=== PATIENT | male | born 1945 | race Caucasian/White ===

== ENCOUNTER → 2019-06-05 08:36 | Outpatient (CLI) | payer MEDICARE, BC, SELFPAY ==
--- NOTE | ~2019-06-05 | MM_ITS ---
MM diagnostic mammo BI DATE: 06/05/2019 08:56 INDICATION: Screening TECHNIQUE: Digital MLO and CC views. Computer aided detection was performed and reviewed. COMPARISON: None DENSITY: The breasts are almost entirely fatty. FINDINGS: No suspicious mass or architectural distortion, malignant calcification, skin thickening or retractio n is detected. IMPRESSIONS: BIRADS Category 1: Negative RECOMMENDATIONS: None Reviewed, dictated and finalized at Location [facility]. Reviewed, dictated and finalized at location A. AL RESEARCHER IMPRESSIONS: BIRADS Category 1: Negative RECOMMENDATIONS: None
== END ==
PROVIDERS: Visit Provider Physician Assistant
DX: N62 Hypertrophy of breast (principal); N64.4 Mastodynia
CPT/HCPCS: 77066

== ENCOUNTER → 2019-06-27 14:41 | Outpatient (CLI) | payer MEDICARE, BC, SELFPAY ==
--- NOTE | ~2019-06-27 | XR_ITS ---
EXAMINATION: XR chest 2V 06/27/2019 15:00 INDICATION: Cough PROCEDURE: 2 view chest COMPARISON: Comparison to multiple prior studies sequentially, with oldest reviewed study dated 05/24. FINDINGS: The lungs are clear. Status post median sternotomy for CABG. 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 The cardiomediastinal silhouette is within normal limits. There are no pleur al effusions. There is no pneumothorax suspected. IMPRESSION: 1: NO ACUTE CARDIOPULMONARY DISEASE. Reviewed, dictated and finalized at location A.
== END ==
PROVIDERS: PCP Family Medicine; Visit Provider Physician Assistant
DX: R05 Cough (principal)
CPT/HCPCS: 71046

== ENCOUNTER 2021-05-31 08:12 | Emergency (ER) | payer MEDICARE, BC, SELFPAY ==
[2021-05-31 08:15] VITALS: BP 171/84; PULSE 79; RESP 20; TEMP 36.7; O2SAT 98
--- NOTE | 2021-05-31 08:24 | ECG_ITS ---
Measurements Intervals [place] Rate: 66 P: 41 MA: 206 QRS: -61 QRSD: 154 T: 52 QT: 441 QTc: 464 Interpretive Statements SINUS RHYTHM BORDERLINE AV CONDUCTION DELAY RIGHT BUNDLE BRANCH BLOCK LEFT ANTERIOR FASCICULAR BLOCK BASELINE ARTIFACT- I, III, AVL, V2-V5 ABNORMAL ECG Electronically Signed On 05-31-2021 14:08:47 FOXPRO DEVELOPER by Silvestre Arreguin D.O.
--- NOTE | 2021-05-31 08:27 | ED.CHESTPAIN ---
HPI - Chest Pain General Chief Complaint: Skin/Abscess/Foreign Body Stated Complaint: cp Time Seen by Provider: 05/31/21 08:18 Source: patient History of Present Illness HPI narrative: Patient presents with chest pain. Ports symptoms been present for the past 2 days and then yesterday he noticed a rash so he came to the ER for evaluation. His pain is burning starts in his back and radiates to his chest it is sensitive to light touch. Denies any fevers, cough, congestion, nausea, vomiting, diaphoresis. Related Data Home Medications Medication Instructions Recorded Confirmed aspirin 81 mg tablet,delayed 81 mg PO DAILY 08/16/19 02/10/21 release atorvastatin 40 mg tablet 40 mg PO DAILY 08/16/19 02/10/21 cetirizine 10 mg tablet 10 mg PO DAILY PRN tablet 08/16/19 02/10/21 clopidogrel 75 mg tablet 75 mg PO DAILY 08/16/19 02/10/21 ferrous sulfate 325 mg (65 mg 325 mg PO DAILY 08/16/19 02/10/21 iron) tablet Allergies Allergy/AdvReac Type Severity Reaction Status Date / Time No Known Allergies Allergy Verified 05/31/21 08:53 Review of Systems Review of Systems: CONSTITUTIONAL: Denies fever, chills, or sweats. EYES: Denies visual changes, redness, or discharge. ENT: Denies rhinorrhea, congestion, sore throat, or otalgia. CARDIOVASCULAR: Denies, palpitations, or edema. RESPIRATORY: Denies cough or dyspnea. GASTROINTESTINAL: Denies abdominal pain, nausea, vomiting, or diarrhea. GENITOURINARY: Denies dysuria or hematuria. SKIN: Reports rash on his chest. MUSCULOSKELETAL: Denies back pain, joint pain, or myalgia. NEUROLOGIC: Denies headache, numbness, dizziness, or weakness. PSYCHIATRIC: Denies anxiety or depression. All systems reviewed & are unremarkable except as noted in HPI and below PMFSH Past Medical History Medical History CAD (coronary artery disease) History of prostate cancer HLD (hyperlipidemia) HTN (hypertension) Hypothyroidism Lumbar spondylosis Obesity Type 2 diabetes mellitus without complications Surgical History Surgical History History of coronary artery bypass graft Family History Family History Mother Family history of primary malignant neoplasm of liver Social History Social History Social History: Tobacco type: cigarettes Second hand tobacco smoke exposure: No Smoking end date: 04/05/77 Alcohol intake: never Substance use: never Substance use type: does not use Gender identity (if verbalized by the patient): Male Sexual Orientation (if Verbalized by the Patient): Straight or Heterosexual Exam Narrative: GENERAL: Well-appearing, well-nourished, and in no acute distress. HEAD: Normocephalic, atraumatic. EYES: PERRLA and EOMI. ENT: Nares clear, no rhinorrhea or epistaxis. Mucous membranes moist. NECK: Supple. No masses. No JVD CHEST: Clear to auscultation. No respiratory distress. No wheezes rales or rhonchi HEART: Regular rate and rhythm. No murmur heard. Normal peripheral pulses. ABDOMEN: Soft, nontender, nondistended, normal active bowel sounds. EXTREMITIES: Normal range of motion. No edema. SKIN: Herpetic rash in the back to the chest along a dermatomal pattern sensitive to light palpation NEURO: No focal deficits. Alert and oriented x3. PSYCH: Normal mood and affect. Course Vital Signs Vital signs: Vital Signs Temperature 36.7 C 05/31/21 08:15 Pulse Rate 79 05/31/21 08:15 Respiratory Rate 20 05/31/21 08:15 Blood Pressure 171/84 H 05/31/21 08:15 Pulse Oximetry 98 05/31/21 08:15 Temperature 36.7 C 05/31/21 08:15 Pulse Rate 59 L 05/31/21 08:50 Respiratory Rate 16 05/31/21 08:50 Blood Pressure 131/58 L 05/31/21 08:50 Pulse Oximetry 100 05/31/21 08:50 MDM - Chest Pain MDM Narrative Me
[2021-05-31 08:50] VITALS: BP 131/58; PULSE 59; RESP 16; O2SAT 100
== END 2021-05-31 08:50 | disposition home or self-care (01) ==
LOC: ANHED 08:44
PROVIDERS: Emergency Provider Emergency Medicine; PCP Family Medicine
DX: B02.29 Other postherpetic nervous system involvement (principal); I45.10 Unspecified right bundle-branch block; R94.31 Abnormal electrocardiogram [ECG] [EKG]
CPT/HCPCS: 93005; 99283

== ENCOUNTER 2022-02-04 12:57 | Outpatient (CLI) | payer MEDICARE, BC, SELFPAY ==
[2022-02-04 13:41] LABS: Hematocrit 38.2 % (42.0-52.0); Hemoglobin 12.8 g/dL (14.0-18.0)
== END 2022-02-04 12:58 | disposition home or self-care (01) ==
LOC: ANHSURGERY 13:02
PROVIDERS: Anesthesiology; PCP Family Medicine; Visit Provider Urology
DX: Z01.818 Encounter for other preprocedural examination (principal); Z78.9 Other specified health status; Z87.438 Personal history of other diseases of male genital organs
CPT/HCPCS: 36415; 85014; 85018; 87086

== ENCOUNTER 2022-02-10 00:47 | Day surgery (SDC) | payer MEDICARE, BC, SELFPAY ==
--- NOTE | 2022-02-02 11:58 | PC.NURSE ---
Report to the Outpatient Waiting Room, entrance under the green pavilion located off [facility], at time _0800 on date 02/10/22 . Planned Procedure Time: _1000 . Time changes happen often and if your time is changed the preop area will call you the afternoon before. - You and your visitor will be asked to self-screen and do not enter if you have any COVID symptoms. - We encourage only one visitor and NO visitors under age 16 are allowed at this time. Your visitor will receive communication by the phone number that is given day of service. - The patient visitor is requested to social distance or may leave the building when not with patient due to restrictions. - A mask is required within the hospital. Patients may have clear liquids (water, carbonated beverages, clear teas, apple juice) until 3 hours prior to surgery with a maximum of 20 ounces. - No food from midnight until time of surgery - Infants may have breast milk until 4 hours before surgery, formula 6 hours prior to surgery. - Children will be allowed to drink immediately following surgery. If applicable, please bring a bottle or sippy cup to assist with drinking. Juice, water, soda, and popsicles are readily available. For infants on formula, please bring formula the day of surgery. Pacifiers are allowed. Take the following medications with a SIP of water the morning of surgery: _CARVEDILOL,,LEVOTHYROXINE, Medications to discontinue per physician ____ASPIRIN PER DR MCKENNA. ALL VITAMINS AND SUPPLEMENTS 3 DAYS PRE OP Date to take last dose____02/06/22 Please no make-up, nail tuvaluan, hairspray, perfume, deodorant, or body powder the day of surgery. No jewelry (including any body piercings) or valuables the day of surgery, leave them at home. Please take a shower or bath the night before, or the morning of, surgery with an antibacterial soap. Wear comfortable, loose fitting clothing. Children are encouraged to wear pajamas. - Jewelry must be removed prior to entering the operating room. Rings and piercings that are not removed may be cut off. - The hospital will not accept responsibility for valuables. - Please leave all valuables, including medications, at home the day of surgery. If you are going home after surgery, a licensed driver's license examiner must drive you home. - NO public transportation without another adult. - We recommend that an adult stay with you for 24 hours following discharge. - We also recommend that you do not drive, make important decision, drink alcoholic beverages, or take any drugs that were not prescribed by your health care provider for at least 24 hours after your discharge time. Follow any additional instructions given to you from your surgeon. If you or anyone in your household have experienced Covid symptoms in the past week, please notify your surgeon or the nurse liaison at the phone number below for possible testing. Telephone instructions given to __PATIENT and asked if any additional questions and then verbalized understanding. Patient advised to call surgeon office or pre surgery nurse liaison [phone] if any additional questions.
[2022-02-02 12:08] VITALS: BMI 30.2
--- NOTE | 2022-02-10 08:45 | WPDHPUPDATE1 ---
History and Physical Update Update Date/Time: 02/10/22 08:45 History and Physical has been reviewed, including an updated exam of the patient. There are NO changes in the patient's condition. Risks, benefits, and alternatives have been discussed and questions answered. Patient agrees to proceed with procedure. Proceed with UroLift
[2022-02-10 08:52] VITALS: BP 199/79; PULSE 68; RESP 14; TEMP 36.7; O2SAT 98
--- NOTE | 2022-02-10 08:54 | WPDANESEPPF ---
Anes - Initial Pre Proc Eval Procedure: Operation Date: 02/10/22 10:00 Proposed Procedures p Urolift - Som Diaz MD Date/Time: 02/10/22 08:54 Surgeon: Som Diaz MD Pre Op Diagnosis: BPH Patient Data Age: 76 Gender: M Height: 1.88 m Weight: 106.6 kg Allergies Allergy/AdvReac Type Severity Reaction Status Date / Time No Known Allergies Allergy Verified 02/02/22 11:45 Home Medications Medication Instructions Recorded Confirmed Type aspirin 81 mg tablet,delayed 81 mg PO DAILY 08/16/19 02/02/22 History release (Adult Low Dose Aspirin) atorvastatin 40 mg tablet 40 mg PO DAILY 08/16/19 02/02/22 History cetirizine 10 mg tablet (Allergy 10 mg PO PRN PRN Allergy Symptoms 08/16/19 02/02/22 History Relief (cetirizine)) ferrous sulfate 325 mg (65 mg 325 mg PO DAILY 08/16/19 02/02/22 History iron) tablet lisinopril 10 mg tablet See Rx Instructions .Route 07/01/21 02/02/22 Rx .COMPLEX #90 tabs levothyroxine 75 mcg tablet See Rx Instructions .Route 08/18/21 02/02/22 Rx .COMPLEX #90 tabs carvedilol 12.5 mg tablet (Coreg) 12.5 mg PO Q12H #180 tabs 08/28/21 02/02/22 Rx trazodone 150 mg tablet 150 mg PO QHS #90 tabs 10/27/21 02/02/22 Rx docusate sodium 100 mg capsule 100 mg PO BID 02/02/22 02/02/22 History (Stool Softener) glucosamine sulfate 500 1 tablet PO QPM 02/02/22 02/02/22 History mg-chondroitin 200 mg-msm 150 mg tablet multivitamin 1 tablet PO DAILY 02/02/22 02/02/22 History tamsulosin 0.4 mg capsule 0.4 mg PO HS 02/02/22 02/02/22 History Patient hx anesthesia problems: none Family hx anesthesia problems: none Results Review: All pre-operative results and documents have been reviewed as part of the pre-operative evaluation. [facility] Past Medical History Medical History CAD (coronary artery disease) History of prostate cancer HLD (hyperlipidemia) HTN (hypertension) Hypothyroidism Lumbar spondylosis Obesity Type 2 diabetes mellitus without complications Surgical History Surgical History History of coronary artery bypass graft Family History Family History Mother Family history of primary malignant neoplasm of liver Social History Social History Social History: Smoking packs per day: 1 Smoking cigarettes per day: 20.0 Years smoked: 15 Smoking pack-years: 15.00 Smoking status: Former smoker Tobacco type: cigarettes Second hand tobacco smoke exposure: No Smoking end date: 04/05/79 Alcohol intake: never Substance use: current Substance use type: marijuana Other substance usage details: WEEKLY FOR BACK PAIN Last use: 01/26/22 Living arrangements: with family Gender identity (if verbalized by the patient): Male Sexual Orientation (if Verbalized by the Patient): Straight or Heterosexual Spiritual care concerns: No Anes - Eval Final PreProcedure Day of Procedure 02/10/22 08:54 Patient weight: obese Heart: regular rate and rhythm Lungs: clear to auscultation Airway: Mallampati scale class II Neurological: alert and oriented Last oral intake: >/= 8 hours ASA classification: III Emergent: no Anesthetic plan: proceed Anesthesia type and monitoring: general GIVS and standard monitoring Results Review: All pre-operative results and documents have been reviewed as part of the pre-operative evaluation. Informed Consent: The patient's anesthetic plan and its attendant risks and benefits were discussed with the patient/family/POA. Questions were solicited and answers provided to the satisfaction of the patient/family/POA.
[2022-02-10] MEDS: LACTATED RINGERS 1,000 ML 30 ML IV CONT (08:59)
[2022-02-10 09:01] VITALS: BP 173/67; PULSE 62
[2022-02-10] MEDS: ceFAZolin 2 GM/D5W 50 ML 2 GM/50 ML BAG IVPB (09:36)
[2022-02-10] MEDS: LIDOCAINE HCL 2% GEL UROJET 10 ML PKG MUCOUS MEM (09:51)
--- NOTE | 2022-02-10 10:04 | W.PM.PROC2 ---
Procedure Note - Detailed Date of Procedure 02/10/22 Pre-op Diagnosis BPH Post-op Diagnosis Same Procedure Performed UroLift with 4 xochitl Surgeon Som Diaz MD Anesthesia General Description of Procedure Patient is taken to the operative suite correctly identified. Once anesthesia was obtained was placed in dorsal lithotomy position and prepped and draped usual sterile fashion. UroLift cystoscope was inserted under direct vision. He has a short prostate with an elevated bladder neck. The bladder itself has no tumors. We ended up stacking 2 xochitl on each side. One was at the 3 o'clock position 1 o'clock position 9 o'clock position and 11 o'clock position. He appeared to have an anterior channel. He had 1 slight area of oozing from the 3:00 a.m. staple. We used a Bugbee to fulgurate this. There appeared to be good hemostasis at termination of procedure. 2% viscous lidocaine was inserted into the urethra. patient is taken recovery stable condition. Implants Four xochitl Drains No Packing No Pathology None sent Complications No immediate complications Condition Stable Disposition PACU
[2022-02-10 10:06] VITALS: BP 121/60; PULSE 63; RESP 14; O2SAT 94
[2022-02-10 10:30] VITALS: BP 119/60; PULSE 59; RESP 20
[2022-02-10 10:50] VITALS: BP 177/72; PULSE 58; RESP 20
== END 2022-02-10 10:51 | disposition home or self-care (01) ==
PROVIDERS: PCP Family Medicine; Visit Provider Urology
PROC: 0T7D8DZ Dilation of Urethra with Intraluminal Device, Via Natural or Artificial Opening Endoscopic (ICD-10-PCS; CPT 52441; principal; 2022-02-10 10:00)
DX: N40.1 Benign prostatic hyperplasia with lower urinary tract symptoms (principal); R35.0 Frequency of micturition; R35.1 Nocturia; I25.10 Atherosclerotic heart disease of native coronary artery without angina pectoris; I10 Essential (primary) hypertension; E78.5 Hyperlipidemia, unspecified; E03.9 Hypothyroidism, unspecified; E11.9 Type 2 diabetes mellitus without complications; M47.816 Spondylosis without myelopathy or radiculopathy, lumbar region; Z85.46 Personal history of malignant neoplasm of prostate; E66.9 Obesity, unspecified; Z68.30 Body mass index [BMI] 30.0-30.9, adult; Z79.82 Long term (current) use of aspirin; Z95.1 Presence of aortocoronary bypass graft; Z87.891 Personal history of nicotine dependence; F12.90 Cannabis use, unspecified, uncomplicated
CPT/HCPCS: C9740; A9270; J0690; J2704; J3010; J7120; L8699

== ENCOUNTER 2023-03-01 08:32 | Emergency (ER) | payer MEDICARE, BC, SELFPAY ==
[2023-03-01] VITALS (21 sets, daily range): BP systolic 152–186; BP diastolic 61–89; PULSE 53–67; RESP 16–17; TEMP 36.4; O2SAT 94–99
--- NOTE | 2023-03-01 09:23 | ECG_ITS ---
Measurements Intervals [place] Rate: 56 P: 80 AL: 194 QRS: -66 QRSD: 167 T: 9 QT: 471 QTc: 458 Interpretive Statements SINUS BRADYCARDIA ATRIAL PREMATURE COMPLEX RIGHT BUNDLE BRANCH BLOCK LEFT ANTERIOR FASCICULAR BLOCK ABNORMAL ECG COMPARED TO ECG 05/31/2021 08:18:31 SINUS BRADYCARDIA NOW PRESENT Electronically Signed On 03-01-2023 9:39:28 SHIP DESIGN TEACHER by Silvestre Arreguin D.O.
--- NOTE | 2023-03-01 09:29 | ED.GENADULT ---
HPI - General Adult General Chief complaint: Unspecified Stated complaint: high bp Time Seen by Provider: 03/01/23 08:59 Source: patient Mode of arrival: ambulatory Limitations: no limitations History of Present Illness HPI narrative: This is a 77-year-old male who presents to the ED with chief complaint of high blood pressure reading at home. Reports that he has been monitoring his blood pressure for the 1st time in over a month and today noticed that it read over 180 systolic. Reports he is otherwise asymptomatic. He has been dealing with some intermittent constipation but is not having any chest pain, shortness of breath or vision changes. Denies any further complaints. Takes lisinopril and carvedilol but states he has not changed his doses of those medications in several years. Related Data Home Medications Medication Instructions Recorded Confirmed aspirin 81 mg tablet,delayed 81 mg PO DAILY 08/16/19 09/07/22 release (Adult Low Dose Aspirin) atorvastatin 40 mg tablet 40 mg PO DAILY 08/16/19 09/07/22 cetirizine 10 mg tablet (Allergy 10 mg PO PRN PRN Allergy Symptoms 08/16/19 09/07/22 Relief (cetirizine)) ferrous sulfate 325 mg (65 mg 325 mg PO DAILY 08/16/19 09/07/22 iron) tablet docusate sodium 100 mg capsule 100 mg PO BID 02/02/22 09/07/22 (Stool Softener) glucosamine sulfate 500 1 tablet PO QPM 02/02/22 09/07/22 mg-chondroitin 200 mg-msm 150 mg tablet multivitamin 1 tablet PO DAILY 02/02/22 09/07/22 tamsulosin 0.4 mg capsule 0.4 mg PO HS 02/02/22 09/07/22 Allergies Allergy/AdvReac Type Severity Reaction Status Date / Time No Known Allergies Allergy Verified 09/07/22 10:21 Review of Systems Review of Systems: All systems as dictated in HPI [facility] Past Medical History Medical History CAD (coronary artery disease) History of prostate cancer HLD (hyperlipidemia) HTN (hypertension) Hypothyroidism Lumbar spondylosis Obesity Type 2 diabetes mellitus without complications Surgical History Surgical History History of coronary artery bypass graft Family History Family History Mother Family history of primary malignant neoplasm of liver Social History Social History Social History: Smoking packs per day: 1 Smoking cigarettes per day: 20.0 Years smoked: 15 Smoking pack-years: 15.00 Smoking status: Former smoker Tobacco type: cigarettes Second hand tobacco smoke exposure: No Smoking end date: 04/05/79 Alcohol intake: never Substance use: current Substance use type: marijuana Other substance usage details: WEEKLY FOR BACK PAIN Last use: 01/26/22 Living arrangements: with family Occupation/Education: retired Gender identity (if verbalized by the patient): Male Sexual Orientation (if Verbalized by the Patient): Straight or Heterosexual Spiritual care concerns: No Exam Narrative: GENERAL: Well-appearing, well-nourished, and in no acute distress. HEAD: Normocephalic, atraumatic. EYES: PERRLA and EOMI. ENT: Nares clear, no rhinorrhea or epistaxis. Mucous membranes moist. Oropharynx without tonsillar hypertrophy exudate or other lesions. NECK: Supple. No adenopathy or masses. CHEST: No respiratory distress. Clear to auscultation. No wheezes rales or rhonchi HEART: Regular rate and rhythm. No murmur heard. Normal peripheral pulses. ABDOMEN: Soft, nontender, nondistended, normal active bowel sounds. MSK: Normal range of motion. No edema. SKIN: Warm, dry, no rash. NEURO: Alert and oriented x3. No focal deficits. PSYCH: Normal mood and affect. Course Vital Signs Vital signs: Vital Signs Temperature 97.6 F 03/01/23 08:38 Pulse Rate 67 03/01/23 08:38 Respiratory Rate 16 03/01/23 08:38 Blood Pres
[2023-03-01 10:36] LABS: Basophils Percent Auto 0.6 % (0.2-1.2); Eosinophils Absolute Auto 0.4 K/mm3 (0-0.3); Eosinophils Percent Auto 5.3 % (0-4.4); Hematocrit 36.8 % (42.0-52.0); Hemoglobin 12.4 g/dL (14.0-18.0); Immature Granulocyte Absolute 0.02 K/mm3 (0.00-0.031); Immature Granulocyte Percent A 0.3 % (0-0.5); Immature Platelet Fraction Pct 6.3 % (0.9-11.2); Lymphocytes Absolute Auto 1.14 K/mm3 (0.9-3.2); Lymphocytes Percent Auto 15.9 % (18.3-44.2); Mean Corpuscular HGB Conc 33.7 g/dl (32-36); Mean Corpuscular Hemoglobin 32.1 pg (26-34); Mean Corpuscular Volume 95.3 fl (80-100); Mean Platelet Volume 10.9 fl (7.4-10.4); Monocytes Absolute Auto 0.6 K/mm3 (0.1-0.6); Monocytes Percent Auto 8.7 % (2.6-8.5); Neutrophils Percent Auto 69.2 % (45.5-73.1); Platelet Count Result 128 k/mm3 (150-375); Red Blood Count 3.86 M/mm3 (4.6-6.20); Red Cell Distribution Width 12.5 % (11.5-14.5); White Blood Count 7.2 K/mm3 (4.5-10.0)
[2023-03-01 10:47] LABS: Alanine Aminotransferase 20 U/L (6-50); Albumin Level 4.1 g/dL (3.5-5.1); Alkaline Phosphatase 60 U/L (38-126); Anion Gap 9 mmol/L (8-16); Aspartate Amino Transferase 32 U/L (17-59); Bilirubin,Total 0.8 mg/dL (0.2-1.3); Blood Urea Nitrogen 17 mg/dL (9-20); Calcium 8.8 mg/dL (8.4-10.2); Carbon Dioxide 24 mmol/L (22-30); Chloride 100 mmol/L (98-107); Estimated CRCL calculation 72 ml/min; Estimated Glomerular Filt Rate > 60; Glucose 107 mg/dL (65-110); Potassium 4.3 mmol/L (3.4-5.0); Sodium 133 mmol/L (137-145)
== END 2023-03-01 11:23 | disposition home or self-care (01) ==
PROVIDERS: Emergency Provider Physician Assistant; PCP Family Medicine
DX: I10 Essential (primary) hypertension (principal); I25.10 Atherosclerotic heart disease of native coronary artery without angina pectoris; E78.5 Hyperlipidemia, unspecified; E03.9 Hypothyroidism, unspecified; E11.9 Type 2 diabetes mellitus without complications; E66.9 Obesity, unspecified; Z68.27 Body mass index [BMI] 27.0-27.9, adult; Z95.1 Presence of aortocoronary bypass graft; Z85.46 Personal history of malignant neoplasm of prostate; Z87.891 Personal history of nicotine dependence; I49.1 Atrial premature depolarization; I45.2 Bifascicular block; Z79.82 Long term (current) use of aspirin
CPT/HCPCS: 36415; 80053; 85025; 85055; 93005; 99283

== ENCOUNTER 2023-03-05 09:49 | Outpatient (CLI) | payer MEDICARE, BC, SELFPAY ==
[2023-03-05 10:28] LABS: Alanine Aminotransferase 19 U/L (6-50); Albumin Level 4.3 g/dL (3.5-5.1); Alkaline Phosphatase 65 U/L (38-126); Anion Gap 9 mmol/L (8-16); Aspartate Amino Transferase 26 U/L (17-59); Bilirubin,Total 0.6 mg/dL (0.2-1.3); Blood Urea Nitrogen 14 mg/dL (9-20); Calcium 8.8 mg/dL (8.4-10.2); Carbon Dioxide 22 mmol/L (22-30); Chloride 102 mmol/L (98-107); Estimated Glomerular Filt Rate > 60; Glucose 120 mg/dL (65-110); Potassium 4.4 mmol/L (3.4-5.0); Sodium 133 mmol/L (137-145)
[2023-03-05 11:18] LABS: Basophils Absolute Auto 0.1 K/mm3 (0.0-0.1); Basophils Percent Auto 0.7 % (0.2-1.2); Eosinophils Absolute Auto 0.4 K/mm3 (0-0.3); Eosinophils Percent Auto 5.4 % (0-4.4); Hematocrit 36.5 % (42.0-52.0); Hemoglobin 12.4 g/dL (14.0-18.0); Immature Granulocyte Absolute 0.03 K/mm3 (0.00-0.031); Immature Granulocyte Percent A 0.4 % (0-0.5); Immature Platelet Fraction Pct 6.9 % (0.9-11.2); Lymphocytes Absolute Auto 1.31 K/mm3 (0.9-3.2); Lymphocytes Percent Auto 18.1 % (18.3-44.2); Mean Corpuscular Volume 94.3 fl (80-100); Mean Platelet Volume 11.2 fl (7.4-10.4); Monocytes Absolute Auto 0.8 K/mm3 (0.1-0.6); Monocytes Percent Auto 10.5 % (2.6-8.5); Neutrophils Absolute Auto 4.7 K/mm3 (1.3-6.7); Neutrophils Percent Auto 64.9 % (45.5-73.1); Platelet Count Result 142 k/mm3 (150-375); Red Blood Count 3.87 M/mm3 (4.6-6.20); Red Cell Distribution Width 12.6 % (11.5-14.5); White Blood Count 7.2 K/mm3 (4.5-10.0)
[2023-03-05 11:34] LABS: Free T4 Free Thyroxine 1.22 ng/mL (0.78-2.19)
== END 2023-03-05 09:50 | disposition home or self-care (01) ==
LOC: ANHLAB 09:51
PROVIDERS: PCP Family Medicine; Visit Provider Physician Assistant Medical
DX: R68.89 Other general symptoms and signs (principal); E03.9 Hypothyroidism, unspecified; I10 Essential (primary) hypertension
CPT/HCPCS: 36415; 80053; 84439; 84443; 85025; 85055

== ENCOUNTER 2023-03-13 10:24 | Inpatient (IN) | payer MEDICARE, BC, SELFPAY ==
[2023-03-13] VITALS (7 sets, daily range): BP systolic 133–180; BP diastolic 61–74; PULSE 52–64; RESP 18–20; TEMP 36.6–36.9; O2SAT 97–99; BMI 27.3
--- NOTE | ~2023-03-13 | XR_ITS ---
EXAMINATION: XR chest 1V INDICATION: Speech difficulty, suspected CVA TECHNIQUE: AP view of the chest is obtained. COMPARISON: 06/27/2019 FINDINGS: The lungs are free of acute opacities. No pleural effusion or pneumothorax. The heart size is normal. Median sternotomy wires and mediastinal surgical clips are seen, likely from prior coronar y artery bypass grafting. IMPRESSION: 1. No acute cardiopulmonary abnormality. Reviewed, dictated and finalized at location F. EMENTATION PROJECT MANAGER
--- NOTE | ~2023-03-13 | CT_ITS ---
EXAMINATION: CTA brain carotid DATE: 03/13/2023 11:07 INDICATION: Speech difficulty TECHNIQUE: Computed tomographic angiography (CTA) of the head was performed without and with 100 mL O mnipaque-350 intravenous contrast. CTA of the neck was performed with intravenous contrast. The dose- length product was 1857.43 mGy-cm. Maximum intensity projection and volume rendered 3D-reconstruction s were created by the technologist on a separate workstation. Automated exposure control and iterativ e reconstruction technique were employed. COMPARISON: None. FINDINGS: HEAD CTA: There is no acute intraparenchymal hemorrhage. No evidence of mass lesion. No evidence of a cute infarction. There is mild periventricular and subcortical hypodensity probably related to small vessel ischemic disease. There is mild prominence of the sulci and ventricles related to cerebral atr ophy. Intracranial calcified cerebral atherosclerosis is noted. There are no extra-axial collections. There is no mass effect or midline shift. The orbits and soft tissues are unremarkable. There is migdalia r complete opacification of the right maxillary sinus. There is a polyp or mucous retention cyst of t he left maxillary sinus. There is no significant stenosis of the basilar artery or posterior cerebral arteries. There is no si gnificant stenosis of the intracranial internal carotid arteries or the anterior or middle cerebral a rteries. The anterior communicating artery and posterior communicating arteries are normal. There is no aneurysm. NECK CTA: The thyroid gland is unremarkable. The submandibular and parotid glands are symmetric. Ther e is no lymphadenopathy. There are no masses identified. The airway is unremarkable. The superior med iastinum is unremarkable. There is moderate cervical spondylosis at C3-4. There is 53% stenosis of the proximal right internal carotid artery relative to normal distal artery lumen diameter (NASCET criteria). There is 37% stenosis of the proximal left internal carotid artery relative to normal distal artery lumen diameter. IMPRESSION: 1. No acute intracranial abnormality. Normal head CTA. 2. 53% stenosis of the proximal right internal carotid artery relative to normal distal artery lumen diameter (NASCET criteria). 3. 37% stenosis of the proximal left internal carotid artery relative to normal distal artery lumen d iameter. Reviewed, dictated and finalized at location F. BIT PREPARATOR IMPRESSION: 1. No acute intracranial abnormality. Normal head CTA. 2. 53% stenosis of the proximal right internal carotid artery relative to viri l distal artery lumen diameter (NASCET criteria). 3. 37% stenosis of the proximal left internal carotid artery relative to normal distal artery lumen diameter.
--- NOTE | ~2023-03-13 | MR_ITS ---
EXAMINATION: MR brain/brain stem wo/w con DATE: 03/14/2023 12:48 INDICATION: TIA, word finding difficulties TECHNIQUE: Magnetic resonance imaging (MRI) of the brain and brainstem was performed with 19 mL Multi Jaja intravenous contrast. Sequences included sagittal and axial T1-weighted SE, axial diffusion-laci ghted FS EPI ASSET, axial T2*-weighted GRE, axial T2-weighted FLAIR Propeller, and axial T2-weighted Propeller. Postcontrast axial and coronal T1-weighted SE was obtained. Apparent diffusion coefficient (ADC) maps were created. COMPARISON: CTA brain carotid 03/13/2023. FINDINGS: No abnormal restricted diffusion to suggest acute ischemic infarct. No MRI evidence of hemorrhage or extra-axial collection. No suspicious foci of susceptibility to suggest prior intraparenchymal hemorr edward. Scattered foci of white matter hyperintensity, likely representing mild small vessel ischemic d isease. Mild generalized parenchymal volume loss. The basilar cisterns are patent. Flow voids are pre served. Marked mucosal thickening in the bilateral maxillary sinuses. Mild mucosal thickening in the ethmoid air cells. Bilateral lens replacements, otherwise the globes and orbital contents are within normal limits. IMPRESSION: No acute intracranial abnormality. Specifically, no MR evidence of acute infarct. Reviewed, dictated and finalized at location K. ECUTTER ASSISTANT IMPRESSION: No acute intracranial abnormality. Specifically, no MR evidence of acute infarc t.
--- NOTE | 2023-03-13 10:32 | PC.NURSE ---
pt to stroke stop. Stroke team notified.
--- NOTE | 2023-03-13 10:33 | ECG_ITS ---
Measurements Intervals [place] Rate: 59 P: 40 NV: 195 QRS: -64 QRSD: 166 T: 0 QT: 464 QTc: 462 Interpretive Statements SINUS BRADYCARDIA WITH OCCASIONAL SUPRAVENTRICULAR PREMATURE COMPLEXES RIGHT BUNDLE BRANCH BLOCK LEFT ANTERIOR FASCICULAR BLOCK POSSIBLE ANTEROSEPTAL MYOCARDIAL INFARCTION , OF INDETERMINATE AGE Electronically Signed On 03-14-2023 10:22:23 SPECTROGRAPHIC ANALYST by Omer Andres M.D.
[2023-03-13 10:38] LABS: Glucose Point of Care 120 mg/dl (65-105)
[2023-03-13 10:57] LABS: Alanine Aminotransferase 19 U/L (6-50); Albumin Level 4.6 g/dL (3.5-5.1); Alkaline Phosphatase 80 U/L (38-126); Anion Gap 9 mmol/L (8-16); Aspartate Amino Transferase 29 U/L (17-59); Basophils Percent Auto 0.6 % (0.2-1.2); Bilirubin,Total 0.8 mg/dL (0.2-1.3); Blood Urea Nitrogen 17 mg/dL (9-20); Carbon Dioxide 25 mmol/L (22-30); Chloride 93 mmol/L (98-107); Eosinophils Absolute Auto 0.4 K/mm3 (0-0.3); Eosinophils Percent Auto 5.4 % (0-4.4); Estimated Glomerular Filt Rate > 60; Glucose 109 mg/dL (65-110); Hematocrit 36.3 % (42.0-52.0); Hemoglobin 12.6 g/dL (14.0-18.0); Immature Granulocyte Absolute 0.03 K/mm3 (0.00-0.031); Immature Granulocyte Percent A 0.5 % (0-0.5); Immature Platelet Fraction Pct 8.4 % (0.9-11.2); Lymphocytes Absolute Auto 1.43 K/mm3 (0.9-3.2); Lymphocytes Percent Auto 21.9 % (18.3-44.2); Mean Corpuscular HGB Conc 34.7 g/dl (32-36); Mean Corpuscular Volume 92.1 fl (80-100); Mean Platelet Volume 11.1 fl (7.4-10.4); Monocytes Absolute Auto 0.9 K/mm3 (0.1-0.6); Monocytes Percent Auto 13.6 % (2.6-8.5); Neutrophils Absolute Auto 3.8 K/mm3 (1.3-6.7); Platelet Count Result 157 k/mm3 (150-375); Potassium 4.7 mmol/L (3.4-5.0); Red Blood Count 3.94 M/mm3 (4.6-6.20); Red Cell Distribution Width 12.2 % (11.5-14.5); Sodium 127 mmol/L (137-145); White Blood Count 6.5 K/mm3 (4.5-10.0)
[2023-03-13 11:06] LABS: Estimated Glomerular Filt Rate > 60
[2023-03-13 11:08] LABS: Partial Thromboplastin Time 27.6 SECONDS (22.3-36.8); Prothrombin Time 13.8 Seconds (11.1-14.7); Troponin I < 0.012 ng/mL (0.000-0.034)
--- NOTE | 2023-03-13 11:44 | ED.NEUROSD ---
HPI - Neuro Symptoms/Deficit General Chief Complaint: Neuro Symptoms/Deficit Stated Complaint: headache, slurred speach Time Seen by Provider: 03/13/23 10:33 History of Present Illness HPI Narrative: Patient is a 77-year-old male with history of hypertension, CAD, hyperlipidemia here with difficulty speaking. His helps with history. They state that last night he went to bed feeling normal. Since he has been having elevated blood pressure readings with systolic blood pressures in the 180s recently and they have been keeping track of this at home with a log. This has been associated with some brain fog. Last night he went to bed around 11 pm, feeling normal. This morning he woke up and was doing some stuff around the house. His woke up a bit later and when she tried to speak with him she noted that he had some difficulty speaking. She initially states that he had nonsensical words that he was saying and then he started making some short sentences with an occasional inappropriate word and now he seems to have his speech back to baseline by the time he arrived to the ED. He denies any numbness or weakness in arms or legs only symptoms were occurring. She denies any facial droop. No prior history of stroke. He does appear to take an aspirin, statin, and antihypertensives. No trauma. No chest pain. Related Data Home Medications Medication Instructions Recorded Confirmed aspirin 81 mg tablet,delayed 81 mg PO HS 08/16/19 03/13/23 release (Adult Low Dose Aspirin) atorvastatin 40 mg tablet 40 mg PO HS 08/16/19 03/13/23 cetirizine 10 mg tablet (Allergy 10 mg PO PRN PRN Allergy Symptoms 08/16/19 03/13/23 Relief (cetirizine)) ferrous sulfate 325 mg (65 mg 325 mg PO HS 08/16/19 03/13/23 iron) tablet docusate sodium 100 mg capsule 100 mg PO BID 02/02/22 03/13/23 (Stool Softener) glucosamine sulfate 500 1 tablet PO HS 02/02/22 03/13/23 mg-chondroitin 200 mg-msm 150 mg tablet multivitamin 1 tablet PO HS 02/02/22 03/13/23 tamsulosin 0.4 mg capsule 0.4 mg PO HS 02/02/22 03/13/23 carvedilol 12.5 mg tablet 12.5 mg PO BID 03/13/23 03/13/23 levothyroxine 88 mcg tablet 88 mcg PO DAILY 03/13/23 03/13/23 lisinopril 10 mg tablet 10 mg PO BID 03/13/23 03/13/23 oxybutynin chloride 15 mg 15 mg PO HS 03/13/23 03/13/23 tablet,extended release 24 hr triamcinolone acetonide 0.1 % 1 applic topical DAILY 03/13/23 03/13/23 topical cream Allergies Allergy/AdvReac Type Severity Reaction Status Date / Time No Known Allergies Allergy Verified 03/05/23 08:52 Review of Systems Review of Systems: All systems reviewed & are unremarkable except as noted in HPI and below PMFSH Past Medical History Medical History (Updated 03/13/23 @ 19:38 by Molly Wade MD) BPH (benign prostatic hyperplasia) CAD (coronary artery disease) History of prostate cancer HLD (hyperlipidemia) HTN (hypertension) Hypothyroidism Insomnia Lumbar spondylosis Obesity Type 2 diabetes mellitus without complications Not currently on medications, A1C 5.6 on 09/16/22 Surgical History Surgical History (Updated 03/13/23 @ 17:39 by Jessenia Watson APRN) History of coronary artery bypass graft Family History Family History Mother Family history of primary malignant neoplasm of liver Social History Social History (Updated 03/13/23 @ 17:35 by Jessenia Watson APRN) Social History: Lives at home with . Elects his , Marly Garcia, as his surrogate decision maker. Code Status: Full Code. Smoking packs per day: 2 Smoking cigarettes per day: 40.0 Years smoked: 10 Smoking pack-years: 20.00 Smoking status: Former smoker Tobacco type: cigarettes Second hand tobacco smoke exposure: No Smoking end date: 04/05/79 Alcohol intake: never Substance use: current Substance use type: marijuana Other substance usage details: WEEKLY FOR BACK PAIN Last use
--- NOTE | 2023-03-13 12:41 | PC.NURSE ---
Patient able to ambulate to the restroom with steady gate
--- NOTE | 2023-03-13 14:21 | ADMGEN ---
This patient, Miguel Garcia, was admitted to Medical Room 345-. Patient/family oriented to hospital policies and general routines including ID bracelet, bed and alarms, visiting hours, pain management, procedures, bathroom and other care routines, personal items, smoking policy, room service/diet, and visiting hours. Information on how to activate the Rapid Response Team has been discussed. Patient/Family are encouraged to report perceived risks to care and to ask questions if they do not understand what they are told or what they should do.
--- NOTE | 2023-03-13 14:26 | PM.IMHP ---
H&P: HPI History of Present Illness Date/Time: 03/13/23 14:26 Chief Complaint: Transient Speech Changes Narrative: 77 y/o M presents here with dysarthria/aphasia with PMH of CAD, CABG (3v), HLD, HTN, DM2, and prostate cancer s/p radiation. Patient presented to the emergency department after experiencing a brief episode of garbled speech and dysarthria this morning, lasted approximately 3-4 mins. LKN - last night at 11 pm (02/10), states he went to bed feeling like his normal self. Woke up around 0530 this morning without complaint. Discovery of symptoms around 0830 (03/13), when his went to speak with him and patient was unable to stay the words that he wanted to, describing his speech as garbled. Initially all of his speech was nonsensical words in 's description and improved to occasional words being garbled before completely resolving. Of note, patient reports developing VIERA this morning prior to changes in speech. States he does not typically get headaches and this is an unusual symptom for him. VIERA is frontal (behind eyes, bilateral), 8/10, with nondescript pain. No associated N/V, photo/phonophobia. VIERA still present, no alleviating or aggravating factors noted by patient. Patient also reports that his BP has been elevated lately, followed up with PCP for this issue and lisinopril was up titrated 1 week ago. Has experienced very occasional brain fog during hypertensive episodes that would resolve without intervention. Denies any current vision changes, dizziness, lightheadedness, focal weakness, speech changes (slurred or word-finding difficulty), chest pain, SOB, or cough. Review of Systems Review of Systems: All systems reviewed & are unremarkable except as noted in HPI and below PMFSH Past Medical History Medical History (Updated 03/13/23 @ 17:49 by Jessenia Watson APRN) BPH (benign prostatic hyperplasia) CAD (coronary artery disease) History of prostate cancer HLD (hyperlipidemia) HTN (hypertension) Hypothyroidism Insomnia Lumbar spondylosis Obesity Type 2 diabetes mellitus without complications Not currently on medications, A1C 5.6 on 09/16/22 Surgical History Surgical History (Updated 03/13/23 @ 17:39 by Jessenia Watson APRN) History of coronary artery bypass graft Family History Family History Mother Family history of primary malignant neoplasm of liver Social History Social History (Updated 03/13/23 @ 17:35 by Jessenia Watson APRN) Social History: Lives at home with . Elects his , Marly Garcia, as his surrogate decision maker. Code Status: Full Code. Smoking packs per day: 2 Smoking cigarettes per day: 40.0 Years smoked: 10 Smoking pack-years: 20.00 Smoking status: Former smoker Tobacco type: cigarettes Second hand tobacco smoke exposure: No Smoking end date: 04/05/79 Alcohol intake: never Substance use: current Substance use type: marijuana Other substance usage details: WEEKLY FOR BACK PAIN Last use: 03/12/23 Lack of Transportation: No Lack of Food: Never True Current Housing: I Have Housing Concerned About Future Housing: No Difficulty Paying Gas/Electric Bills: No Difficulty Paying for Meds: No Currently Unemployed: No Education: Bachelor's Degree Difficulty w/ Childcare or Family Care: No Living arrangements: with family Occupation/Education: retired Gender identity (if verbalized by the patient): Male Sexual Orientation (if Verbalized by the Patient): Straight or Heterosexual Spiritual care concerns: No Meds Home Medications and Allergies Home Medications Medication Instructions Recorded Confirmed Type aspirin 81 mg tablet,delayed 81 mg PO HS 08/16/19 03/13/23 History release (Adult Low Dose Aspirin) atorvastatin 40 mg tablet 40 mg PO HS 08/16/19 03/13/23 History cetirizine 10 mg tablet (Allergy 10 mg PO PRN PRN Allergy Symptoms 08/16/1903/13
[2023-03-13 16:39] LABS: Magnesium 1.5 mg/dL (1.6-2.3)
[2023-03-13] MEDS: oxyBUTYnin CHLORIDE XL 5 MG TAB.ER.24 15 MG PO (20:21)
[2023-03-13] MEDS: TAMSULOSIN HCL 0.4 MG CAPSULE PO (20:22)
[2023-03-13] MEDS: FERROUS SULFATE 325 MG TABLET DR PO (20:22)
[2023-03-13] MEDS: lisinopriL 10 MG TABLET PO (20:22)
[2023-03-13] MEDS: MULTIVITAMINS THERAPEUTIC TAB (*BKC) 1 TABLET PO (20:22)
[2023-03-13] MEDS: ATORVASTATIN 40 MG TABLET PO (20:22)
[2023-03-13] MEDS: ASPIRIN 81 MG ENTERIC TABLET PO (20:22)
[2023-03-13] MEDS: traZODone HCL 50 MG TABLET 150 MG PO (20:25)
[2023-03-14] VITALS (11 sets, daily range): BP systolic 121–151; BP diastolic 60–68; PULSE 51–68; RESP 16–18; TEMP 36.4–36.6; O2SAT 97–99
[2023-03-14] MEDS: LEVOTHYROXINE SODIUM 88 MCG TABLET PO (04:34)
[2023-03-14 06:31] LABS: Hematocrit 33.9 % (42.0-52.0); Hemoglobin 11.9 g/dL (14.0-18.0); Immature Platelet Fraction Pct 6.6 % (0.9-11.2); Mean Corpuscular HGB Conc 35.1 g/dl (32-36); Mean Corpuscular Hemoglobin 32.2 pg (26-34); Mean Corpuscular Volume 91.9 fl (80-100); Mean Platelet Volume 10.7 fl (7.4-10.4); Platelet Count Result 136 k/mm3 (150-375); Red Blood Count 3.69 M/mm3 (4.6-6.20); Red Cell Distribution Width 12.4 % (11.5-14.5); White Blood Count 6.3 K/mm3 (4.5-10.0)
[2023-03-14 06:40] LABS: Alanine Aminotransferase 18 U/L (6-50); Albumin Level 4.1 g/dL (3.5-5.1); Alkaline Phosphatase 73 U/L (38-126); Anion Gap 7 mmol/L (8-16); Aspartate Amino Transferase 27 U/L (17-59); Bilirubin,Total 0.8 mg/dL (0.2-1.3); Blood Urea Nitrogen 14 mg/dL (9-20); Calcium 8.6 mg/dL (8.4-10.2); Carbon Dioxide 24 mmol/L (22-30); Chloride 99 mmol/L (98-107); Cholesterol 111 mg/dL (0-200); Estimated CRCL calculation 72 ml/min; Estimated Glomerular Filt Rate > 60; Glucose 102 mg/dL (65-110); HDL Direct 44 mg/dL; Magnesium 1.8 mg/dL (1.6-2.3); Potassium 4.5 mmol/L (3.4-5.0); Sodium 130 mmol/L (137-145); Triglycerides 83 mg/dL (<150)
[2023-03-14 06:51] LABS: LDL Cholesterol Direct 55 mg/dL
[2023-03-14] MEDS: DOCUSATE SODIUM 100 MG CAPSULE PO ×2 (08:10→16:33)
[2023-03-14] MEDS: lisinopriL 10 MG TABLET PO ×2 (08:10→21:34)
[2023-03-14] MEDS: carvediloL 12.5 MG TABLET PO ×2 (08:10→21:34)
[2023-03-14] MEDS: ENOXAPARIN 40 MG/0.4 ML SYRINGE SUB-Q (08:11)
[2023-03-14 08:51] LABS: Hemoglobin A1C 5.6 % (<5.7)
--- NOTE | 2023-03-14 10:57 | WPDNEURCNPN ---
Assessment and Plan Assessment and plan (1) Brain TIA: Code(s): G45.9 - Transient cerebral ischemic attack, unspecified Status: Acute (2) Episode of change in speech: Code(s): R47.89 - Other speech disturbances Status: Acute (3) Type 2 diabetes mellitus without complications: Code(s): E11.9 - Type 2 diabetes mellitus without complications Status: Acute (4) HTN (hypertension): Qualifiers: Hypertension type: primary hypertension Qualified Code(s): I10 - Essential (primary) hypertension Code(s): I10 - Essential (primary) hypertension Status: Acute (5) HLD (hyperlipidemia): Code(s): E78.5 - Hyperlipidemia, unspecified Status: Acute Plan Mr. Garcia is a 77 year old male with a history of HTN, HLD, DM, CAD presenting for evaluation of transient episode of aphasia. Suspect likely TIA. ABCD2 score is 3, but he is already on ASA 81mg daily. CTA brain/carotid showed extracranial stenosis on both sides, with 37% in LICA and 53% GERARDO. - MRI brain pending - Will likely do Aspirin and Plavix x 3 weeks, followed by daily Aspirin 81mg (assuming there is no acute stroke on MRI) - Continue Lipitor 40mg daily, LDL is at goal - Surface echocardiogram with bubble study Consult date: 03/14/23 Reason for consult: TIA HPI: Miguel Garcia is a 77 year old male with a history of HTN, DM, HLD, CAD who presented on 03/13 due to speech changes. Patient's last known well was the night before admission when he went to bed around 11PM. The following AM, noted that patient was have difficulty with his speech -- intially it was nonsensical, but eventually improved to the point he could make sentences but still with paraphasic errors. Symptoms only lasted about 10 minutes. He was taken to [facility], where his speech was noted to be back to baseline. He did not have any other focal deficits during this entire episode. His initial blood pressure was in the 180s systolic. CT head was negative for acute changes. CTA brain/carotid showed 53% stenosis in the proximal R ICA and 37% stenosis in the proximal L ICA. MRI of brain has not yet been completed. EKG showed sinus bradycardia with occasional supraventricular premature complexes. His LDL is 55 and A2c is 5.4. He is already on ASA 81mg daily and Lipitor 40mg daily. Review of Systems Review of Systems: All systems reviewed & are unremarkable except as noted in HPI and below PMFSH Past Medical History Medical History (Updated 03/13/23 @ 19:38 by Molly Wade MD) BPH (benign prostatic hyperplasia) CAD (coronary artery disease) History of prostate cancer HLD (hyperlipidemia) HTN (hypertension) Hypothyroidism Insomnia Lumbar spondylosis Obesity Type 2 diabetes mellitus without complications Not currently on medications, A1C 5.6 on 09/16/22 Surgical History Surgical History (Updated 03/13/23 @ 17:39 by Jesseina Watson APRN) History of coronary artery bypass graft Family History Family History Mother Family history of primary malignant neoplasm of liver Social History Social History (Updated 03/13/23 @ 17:35 by Jessenia Watson APRN) Social History: Lives at home with . Elects his , Marly Garcia, as his surrogate decision maker. Code Status: Full Code. Smoking packs per day: 2 Smoking cigarettes per day: 40.0 Years smoked: 10 Smoking pack-years: 20.00 Smoking status: Former smoker Tobacco type: cigarettes Second hand tobacco smoke exposure: No Smoking end date: 04/05/79 Alcohol intake: never Substance use: current Substance use type: marijuana Other substance usage details: WEEKLY FOR BACK PAIN Last use: 03/12/23 Lack of Transportation: No Lack of Food: Never True Current Housing: I Have Housing Concerned About Future Housing: No Difficulty Paying Gas/Electric Bills: No Difficulty Paying for Meds: No Currentl
[2023-03-14] MEDS: oxyCODONE/ACETAMINOPHEN (*CRX) 5-325 MG TABLET 1 TABLET PO (11:33)
[2023-03-14] MEDS: diazePAM (*CRX) 5 MG TABLET PO (11:34)
--- NOTE | 2023-03-14 12:12 | PM.IMPN ---
Progress Note: A&P Assessment and Plan (1) Brain TIA: Code(s): G45.9 - Transient cerebral ischemic attack, unspecified Status: Acute Assessment and Plan: Likely TIA CT brain and neck completed CTA brain/carotid showed extracranial stenosis on both sides, with 37% in LICA and 53% GERARDO. PT will need vascular folow up on DC Pt awaiting MRI brain And echo study Pt seen by neurology medications have been adjusted (2) Episode of change in speech: Code(s): R47.89 - Other speech disturbances Status: Acute Assessment and Plan: Transient deficits, garbled speech, that were discovered on 03/13 at 08:30 am, resolves within 3-4 mins. LNK 11 pm on 03/12. Imaging shows no acute intracranial abnormality. -admission for observation and telemetry -Not candidate for thrombolytics or thrombectomy due resolution of symptoms and no abnormality seen on imaging. -CXR: No acute cardiopulmonary abnormality. -CTA 1. No acute intracranial abnormality. Normal head CTA. 2. 53% stenosis of the proximal right internal carotid artery relative to normal distal artery lumen diameter (NASCET criteria). 3. 37% stenosis of the proximal left internal carotid artery relative to normal distal artery lumen diameter. -Neurology consulted (3) Type 2 diabetes mellitus without complications: Code(s): E11.9 - Type 2 diabetes mellitus without complications Status: Acute Assessment and Plan: Accuchecks SSI Sugars are stable (4) HTN (hypertension): Qualifiers: Hypertension type: primary hypertension Qualified Code(s): I10 - Essential (primary) hypertension Code(s): I10 - Essential (primary) hypertension Status: Acute Assessment and Plan: BP is 151/68 continue BP medications (5) HLD (hyperlipidemia): Code(s): E78.5 - Hyperlipidemia, unspecified Status: Acute Assessment and Plan: Continue statin (6) Hypothyroidism: Qualifiers: Hypothyroidism type: unspecified Qualified Code(s): E03.9 - Hypothyroidism, unspecified Code(s): E03.9 - Hypothyroidism, unspecified Status: Acute Assessment and Plan: Continue home levothyroxine. (7) History of back surgery: Code(s): Z98.890 - Other specified postprocedural states Status: Acute Assessment and Plan: Percocetx1 and Valiumx1 given before MRI pt has chronic back pain cannot lie flat Subjective Date/time seen: 03/14/23 12:12 Interval history: 77 y/o M presents here with dysarthria/aphasia with PMH of CAD, CABG (3v), HLD, HTN, DM2, and prostate cancer s/p radiation. Pt admitted with garbled speech suspected TIA pt going for MRI brain today Pt had CT brain and neck Pt seen by neurology medical management started awaiting ECHO given pts medical history Pt otherwise has no complaints walking talking normally Review of Systems Review of Systems: No specific complaints Exam Const: General: cooperative, healthy appearing and overweight; No in distress Nutritional Appearance: overweight Orientation/consciousness: oriented to person HENMT: Head: normal to inspection Resp: Effort & Inspection: no respiratory distress Auscultation: no rhonchi and no wheezes Cardio: Rate: regular rate Rhythm: regular rhythm GI: Inspection: normal to inspection GI Palp: No abdominal tenderness, No Guarding due to palpation present (GI) and No Hepatomegaly present Auscultation: normal bowel sounds Neuro: General: oriented to person Objective Data Vital Signs Vital Signs: Vital Signs - 24 hr 03/13/23 13:49 03/13/23 14:32 03/13/23 16:00 Temperature 36.9 C Pulse Rate 60 52 L 62 Respiratory Rate 20 18 Blood Pressure 134/71 151/65 H Pulse Oximetry 98 97 Oxygen Delivery 03/13/23 16:56 03/13/23 20:00 03/13/23 20:00 Temperature Pulse Rate 61 61 Respiratory Rate 18 Blood Pressure Pulse Oximetry 97 Oxy
[2023-03-14] MEDS: oxyBUTYnin CHLORIDE XL 5 MG TAB.ER.24 15 MG PO (21:34)
[2023-03-14] MEDS: ATORVASTATIN 40 MG TABLET PO (21:34)
[2023-03-14] MEDS: MULTIVITAMINS THERAPEUTIC TAB (*BKC) 1 TABLET PO (21:34)
[2023-03-14] MEDS: traZODone HCL 50 MG TABLET 150 MG PO (21:34)
[2023-03-14] MEDS: ASPIRIN 81 MG ENTERIC TABLET PO (21:35)
[2023-03-14] MEDS: FERROUS SULFATE 325 MG TABLET DR PO (21:35)
[2023-03-14] MEDS: TAMSULOSIN HCL 0.4 MG CAPSULE PO (21:35)
[2023-03-15] VITALS (9 sets, daily range): BP systolic 133–155; BP diastolic 59–82; PULSE 49–66; RESP 18; TEMP 36.7–36.8; O2SAT 97–99
--- NOTE | 2023-03-15 | ECHO_ITS ---
Patient Info Name: Miguel Garcia Age: 77 years : 1945 Gender: Male Ht: 74 in Wt: 212 lbs BSA: 2.25 m2 HR: 63 bpm BP: 148 / 82 mmHg Heart Rhythm: Sinus Rhythm Technical Quality: Fair Exam Date: 03/15/2023 11:06 AM Exam Location: Echo Lab Exam Room: [facility] Patient Status: Inpatient Admit Date: 03/14/2023 Staff Ordering Physician: Jessenia Watson APRN Electronics System Mechanic: Eulalia Gonzalez RDCS Attending Provider: Ruddy Bates MD Referring Physician: Shirley MONSALVE; Exam Type: CA echo doppler w bubble study Study Info Indications - TIA R/O CSE HX/O CAD /CABG Complete two-dimensional, color flow and Doppler transthoracic echocardiogram is performed with agitated saline. Contrast/Agitated Saline Contrast/Ag. Saline: Agitated Saline Amount: 20.00 ml Existing IV Access: Yes IV Access Condition: patent with no signs of infiltration Summary 1. Left ventricular hypertrophy with adequate systolic function and grade 1 diastolic noncompliance+. 2. Left atrial enlargement. 3. Modest amounts of mitral trivial aortic and tricuspid regurgitation. 4. Agitated saline contrast injection demonstrates no evidence of intracardiac shunt. Left Ventricle Left ventricular chamber dimension is normal. Left ventricular systolic function is normal, estimated at 50-55%. There is mild concentric increased left ventricular wall thickness. The left ventricular diastolic function is grade I diastolic dysfunction. Right Ventricle Right ventricular chamber dimension is normal. Left Atria Left atrial chamber dimension is mildly enlarged. Right Atria Right atrial chamber dimension is normal. Atrial Septum Intact interatrial septum visualized by agitated saline imaging. Aortic Valve The aortic valve is trileaflet. There is mild aortic valve sclerosis. There is trace aortic valve regurgitation. Pulmonic Valve The pulmonic valve is normal. Mitral Valve The mitral valve has normal leaflets. There is trace mitral valve regurgitation. Tricuspid Valve The tricuspid valve leaflets are normal. Pericardium/Pleural The pericardium appears normal. Aorta The aortic root size at the sinus of Valsalva is normal. Left Ventricular Outflow Tract Name Value Normal LVOT 2D LVOT Diameter 2.1 cm LVOT Doppler LVOT Peak Gradient 5 mmHg LVOT Mean Gradient 3 mmHg LVOT VTI 23 cm LVOT VTI/AV VTI Ratio 0.7 LVOT Stroke Volume 79 ml LVOT CO 17.4 l/min LVOT CI 7.7 l/min/m2 Pulmonic Valve Name Value Normal PV Doppler PV Peak Gradient 7 mmHg Mitral Valve Name Value Normal
[2023-03-15] MEDS: LEVOTHYROXINE SODIUM 88 MCG TABLET PO (06:02)
[2023-03-15] MEDS: lisinopriL 10 MG TABLET PO (08:47)
[2023-03-15] MEDS: carvediloL 12.5 MG TABLET PO (08:47)
[2023-03-15] MEDS: DOCUSATE SODIUM 100 MG CAPSULE PO ×2 (08:48→17:03)
[2023-03-15] MEDS: ENOXAPARIN 40 MG/0.4 ML SYRINGE SUB-Q (08:48)
[2023-03-15] MEDS: polyethylene glycoL 3350 17 GM POWD.PACK PO (12:22)
--- NOTE | 2023-03-15 18:05 | PM.DS ---
DS: Admitting Diagnosis Discharge Date 03/15/2023: Admitting Diagnosis Transient ischemic attack DS: Discharge Diagnosis Discharge Diagnosis (1) Brain TIA: Code(s): G45.9 - Transient cerebral ischemic attack, unspecified Status: Acute (2) Episode of change in speech: Code(s): R47.89 - Other speech disturbances Status: Acute (3) Type 2 diabetes mellitus without complications: Code(s): E11.9 - Type 2 diabetes mellitus without complications Status: Acute (4) HTN (hypertension): Qualifiers: Hypertension type: primary hypertension Qualified Code(s): I10 - Essential (primary) hypertension Code(s): I10 - Essential (primary) hypertension Status: Acute (5) HLD (hyperlipidemia): Code(s): E78.5 - Hyperlipidemia, unspecified Status: Acute (6) Hypothyroidism: Qualifiers: Hypothyroidism type: unspecified Qualified Code(s): E03.9 - Hypothyroidism, unspecified Code(s): E03.9 - Hypothyroidism, unspecified Status: Acute (7) History of back surgery: Code(s): Z98.890 - Other specified postprocedural states Status: Acute (8) Chronic low back pain: Code(s): M54.5 - Low back pain; G89.29 - Other chronic pain Status: Acute (9) Lumbar spondylosis: Code(s): M47.816 - Spondylosis without myelopathy or radiculopathy, lumbar region Status: Acute (10) Osteoarthritis of right knee: Code(s): M17.11 - Unilateral primary osteoarthritis, right knee Status: Acute (11) Obesity: Code(s): E66.9 - Obesity, unspecified Status: Acute (12) Eczema: Code(s): L30.9 - Dermatitis, unspecified Status: Acute DS: Summary Hospital Course Reason for hospitalization: Patient admitted with transient speech changes which lasted for 3-4 minutes. Admitted for TIA workup Hospital Course: H&P: HPI History of Present Illness Date/Time: 03/13/23? 14:26 Chief Complaint: Transient Speech Changes Narrative: 77 y/o M presents here with dysarthria/aphasia with PMH of CAD, CABG (3v), HLD, HTN, DM2, and prostate cancer s/p radiation. Patient presented to the emergency department after experiencing a brief episode of garbled speech and dysarthria this morning, lasted approximately 3-4 mins. LKN - last night at 11 pm (02/10), states he went to bed feeling like his normal self. Woke up around 0530 this morning without complaint. Discovery of symptoms around 0830 (03/13), when his went to speak with him and patient was unable to stay the words that he wanted to, describing his speech as garbled. Initially all of his speech was nonsensical words in 's description and improved to occasional words being garbled before completely resolving. Of note, patient reports developing VIERA this morning prior to changes in speech. States he does not typically get headaches and this is an unusual symptom for him. VIERA is frontal (behind eyes, bilateral), 8/10, with nondescript pain. No associated N/V, photo/phonophobia. VIERA still present, no alleviating or aggravating factors noted by patient. Patient also reports that his BP has been elevated lately, followed up with PCP for this issue and lisinopril was up titrated 1 week ago. Has experienced very occasional brain fog during hypertensive episodes that would resolve without intervention. Denies any current vision changes, dizziness, lightheadedness, focal weakness, speech changes (slurred or word-finding difficulty), chest pain, SOB, or cough. HOSPITAL COURSE ... 03/13/2023 - 03/15/2023: Patient was seen and evaluated by Neurology. TIA Workup was done with brain MRI, head and neck CTA and 2D echo with bubble study which were within normal limits. Patient cleared for discharge by Neurology with instructions for aspirin and Plavix for 3 weeks followed by daily aspirin 81 mg. He is advised to follow up closely with PCP and Neurology as an outpatient. Status at Discharg
== END 2023-03-15 18:43 | disposition home or self-care (01) | DRG 69 ==
LOC: ANHED 14:25 → ANH3MED 14:31
PROVIDERS: Student in an Organized Health Care Education/Training Program; Admitting Provider Internal Medicine; Emergency Provider Student in an Organized Health Care Education/Training Program; PCP Family Medicine; Visit Provider Family Medicine
DX: G45.9 Transient cerebral ischemic attack, unspecified (principal); I65.23 Occlusion and stenosis of bilateral carotid arteries; I10 Essential (primary) hypertension; I25.10 Atherosclerotic heart disease of native coronary artery without angina pectoris; R47.89 Other speech disturbances; R29.700 NIHSS score 0; E11.9 Type 2 diabetes mellitus without complications; E78.5 Hyperlipidemia, unspecified; E03.9 Hypothyroidism, unspecified; L30.9 Dermatitis, unspecified; N40.0 Benign prostatic hyperplasia without lower urinary tract symptoms; M17.11 Unilateral primary osteoarthritis, right knee; M47.816 Spondylosis without myelopathy or radiculopathy, lumbar region; Z95.1 Presence of aortocoronary bypass graft; Z79.82 Long term (current) use of aspirin; Z85.46 Personal history of malignant neoplasm of prostate; Z92.3 Personal history of irradiation; Z87.891 Personal history of nicotine dependence
CPT/HCPCS: 36415; 70496; 70498; 70553; 71045; 80053; 80061; 82607; 82746; 82948; 83036; 83735; 84425; 84484; 85025; 85027; 85055; 85610; 85730; 93005; 93306; 96365; 96366; 96375; 99285; A9270; A9577; G0378; J1650; J3411; J3475; J7030; Q9967

== ENCOUNTER 2023-12-20 06:10 | Emergency (ER) | payer MEDICARE, BC, SELFPAY ==
[2023-12-20] VITALS (14 sets, daily range): BP systolic 129–155; BP diastolic 57–84; PULSE 54–73; RESP 16–22; TEMP 36.3; O2SAT 94–98
--- NOTE | ~2023-12-20 | CT_ITS ---
CTA brain carotid Ordering provider: Kory Pena MD History: . CVA . Comparison: March 13, 2023 Technique: CT angiogram head and neck was performed following timed intravenous injection of contrast . Thin slice axial images and reformatted coronal images were obtained. Three dimensional reformatted images of the brain were also obtained using a [employer] workstation. Radiation reduction technique ut ilized. DLP is 1905.38 mGy-cm. FINDINGS: HEAD: --ANTERIOR AND MIDDLE CEREBRAL ARTERIES AND BRANCHES: Normal caliber and contour. --INTERNAL CAROTID ARTERIES: Mild atheromatous disease but no significant stenosis. No occlusion. --BASILAR ARTERY AND BRANCHES: Normal caliber and contour. No atheromatous disease. --POSTERIOR CEREBRAL ARTERIES: Normal caliber and contour --POSTERIOR COMMUNICATING ARTERIES: Not visualized which is probably related to congenital absence or small size. --ANEURYSM: None visualized. --BRAIN: Mild brain atrophy with deep white matter ischemic changes. Mild ventricular dilatation. No acute intracranial process. --BONES AND SUPERFICIAL SOFT TISSUES: no definite abnormality. --PARANASAL SINUSES AND MASTOIDS: Bilateral maxillary sinus disease. NECK: --RIGHT CERVICAL CAROTID SYSTEM: Mild atheromatous disease of the carotid bulb and proximal internal carotid artery without significant stenosis. Percent stenosis per NASCET criteria is 60%. No carotid dissection. Otherwise, no significant atheromatous disease or stenosis of the cervical carotid syste m. --LEFT CERVICAL CAROTID SYSTEM: Mild atheromatous disease of the carotid bulb and proximal internal c arotid artery without significant stenosis. Percent stenosis per NASCET criteria is 50%. No carotid dissection. Otherwise, no significant atheromatous disease or stenosis of the cervical carotid system. --VERTEBRAL ARTERIES: Normal caliber and contour. --VISUALIZED AORTIC ARCH AND BRANCHING VESSELS: Mild atheromatous disease but no significant stenosis . Atherosclerotic changes seen at the origin of the common carotid arteries. --SOFT TISSUES: Normal. --CERVICAL SPINE: Age appropriate degenerative changes. IMPRESSION: l CTA head and neck. Percent stenosis per NASCET criteria is 60% on the right side and 50% percent o n the left. No significant stenosis or occlusion seen in the intracranial arteries. Reviewed, dictated and finalized at location A. IMPRESSION: l CTA head and neck. Percent stenosis per NASCET criteria is 60% on the right side and 50% percent on the left. No significant stenosis or occlusion seen in the intracranial arteries.
--- NOTE | 2023-12-20 07:07 | PC.NURSE ---
bssr given to leena solorzano at this time.
--- NOTE | 2023-12-20 07:20 | ED.GENADULT ---
HPI - General Adult General Chief complaint: Neuro Symptoms/Deficit Stated complaint: periods of confusion, left eye shade coming down Time Seen by Provider: 12/20/23 06:57 History of Present Illness HPI narrative: 78 year old male present to ED for evaluation for change and vision of his left eye. Patient states he is walking on Wednesday did not see a step and did stumble. Patient did not strike his head but did strain his right groin. Patient notices a few hours after the incident he is having some left eye pain and did notice some growing in his vision over his left eye. Patient describes a great current that obstructs the left visual field for Related Data Home Medications Medication Instructions Recorded Confirmed aspirin 81 mg tablet,delayed 81 mg PO HS 08/16/19 10/04/23 release (Adult Low Dose Aspirin) atorvastatin 40 mg tablet 40 mg PO HS 08/16/19 10/04/23 cetirizine 10 mg tablet (Allergy 10 mg PO PRN PRN Allergy Symptoms 08/16/19 10/04/23 Relief (cetirizine)) ferrous sulfate 325 mg (65 mg 325 mg PO HS 08/16/19 10/04/23 iron) tablet docusate sodium 100 mg capsule 100 mg PO BID 02/02/22 10/04/23 (Stool Softener) glucosamine sulfate 500 1 tablet PO HS 02/02/22 10/04/23 mg-chondroitin 200 mg-msm 150 mg tablet multivitamin 1 tablet PO HS 02/02/22 10/04/23 tamsulosin 0.4 mg capsule 0.4 mg PO HS 02/02/22 10/04/23 oxybutynin chloride 15 mg 15 mg PO HS 03/13/23 10/04/23 tablet,extended release 24 hr triamcinolone acetonide 0.1 % 1 applic topical DAILY 03/13/23 10/04/23 topical cream Allergies Allergy/AdvReac Type Severity Reaction Status Date / Time No Known Allergies Allergy Verified 12/20/23 06:38 Review of Systems Review of Systems: All systems reviewed & are unremarkable except as noted in HPI and below PMFSH Past Medical History Medical History BPH (benign prostatic hyperplasia) CAD (coronary artery disease) History of prostate cancer HLD (hyperlipidemia) HTN (hypertension) Hypothyroidism Insomnia Lumbar spondylosis Obesity Type 2 diabetes mellitus without complications Not currently on medications, A1C 5.6 on 09/16/22 Surgical History Surgical History History of coronary artery bypass graft Family History Family History Mother Family history of primary malignant neoplasm of liver Social History Social History Social History: Lives at home with . Elects his , Marly Garcia, as his surrogate decision maker. Code Status: Full Code. Smoking packs per day: 2 Smoking cigarettes per day: 40.0 Years smoked: 10 Smoking pack-years: 20.00 Smoking status: Former smoker Tobacco type: cigarettes Second hand tobacco smoke exposure: No Smoking end date: 04/05/79 Alcohol intake: never Substance use: current Substance use type: marijuana Other substance usage details: WEEKLY FOR BACK PAIN Last use: 03/12/23 Do You Feel Safe in your Home?: Yes Lack of Transportation: No Lack of Food: Never True Current Housing: I Have Housing Concerned About Future Housing: No Difficulty Paying Gas/Electric Bills: No Difficulty Paying for Meds: No Currently Unemployed: No Education: Bachelor's Degree Difficulty w/ Childcare or Family Care: No Living arrangements: with family Occupation/Education: retired Gender identity (if verbalized by the patient): Male Sexual Orientation (if Verbalized by the Patient): Straight or Heterosexual Spiritual care concerns: No Exam Narrative: APPEARANCE: Well appearing, no pain, no distress, well-nourished. HEAD: normocephalic, atraumatic. EYES: PERRLA/EOMI, conjunctivae clear. Visual oneil intact with blurred vision the upper visual oneil. Fundus exam was difficult on that side. Bedsid
[2023-12-20 07:34] LABS: Hematocrit 34.2 % (42.0-52.0); Hemoglobin 11.8 g/dL (14.0-18.0); Immature Platelet Fraction Pct 5.8 % (0.9-11.2); Mean Corpuscular HGB Conc 34.5 g/dl (32-36); Mean Corpuscular Hemoglobin 33.1 pg (26-34); Mean Corpuscular Volume 95.8 fl (80-100); Platelet Count Result 126 k/mm3 (150-375); Red Blood Count 3.57 M/mm3 (4.6-6.20); Red Cell Distribution Width 12.1 % (11.5-14.5); White Blood Count 6.7 K/mm3 (4.5-10.0)
[2023-12-20 07:35] LABS: Basophils Percent Auto 0.6 % (0.2-1.2); Eosinophils Absolute Auto 0.4 K/mm3 (0-0.3); Eosinophils Percent Auto 6.2 % (0-4.4); Immature Granulocyte Absolute 0.03 K/mm3 (0.00-0.031); Immature Granulocyte Percent A 0.4 % (0-0.5); Lymphocytes Absolute Auto 1.13 K/mm3 (0.9-3.2); Lymphocytes Percent Auto 16.8 % (18.3-44.2); Mean Platelet Volume 10.7 fl (7.4-10.4); Monocytes Absolute Auto 0.9 K/mm3 (0.1-0.6); Monocytes Percent Auto 13.5 % (2.6-8.5); Neutrophils Absolute Auto 4.2 K/mm3 (1.3-6.7); Neutrophils Percent Auto 62.5 % (45.5-73.1)
[2023-12-20 07:44] LABS: Alanine Aminotransferase 16 U/L (6-50); Albumin Level 3.8 g/dL (3.5-5.1); Alkaline Phosphatase 100 U/L (38-126); Anion Gap 10 mmol/L (4-12); Aspartate Amino Transferase 26 U/L (17-59); Bilirubin,Total 0.3 mg/dL (0.2-1.3); Blood Urea Nitrogen 15 mg/dL (9-20); Calcium 8.2 mg/dL (8.4-10.2); Carbon Dioxide 24 mmol/L (22-30); Chloride 101 mmol/L (98-107); Estimated CRCL calculation 71 ml/min; Estimated Glomerular Filt Rate > 60; Glucose 108 mg/dL (65-110); Potassium 4.2 mmol/L (3.4-5.0); Sodium 135 mmol/L (137-145)
[2023-12-20 07:45] LABS: Prothrombin Time 13.7 Seconds (11.1-14.7)
[2023-12-20 07:46] LABS: Partial Thromboplastin Time 28.1 Seconds (22.3-36.8)
[2023-12-20 08:33] LABS: Appearance Urine Clear (Clear); Color Urine Yellow (Yellow)
[2023-12-20 08:34] LABS: Add Urine Microscopic? NO; Bilirubin Urine Negative (Negative); Blood Urine Negative (Negative); Glucose Urine UA Negative (Negative); Ketones Urine Negative (Negative); Leukocyte Esterase Ur Negative LEU/UL (Negative); Nitrate Urine Negative (Negative); Protein Urine Negative (Negative); Specific Grav Ur 1.013 (1.001-1.035)
== END 2023-12-20 09:10 | disposition short-term general hospital (02) ==
PROVIDERS: Emergency Provider Emergency Medicine; PCP Family Medicine
DX: H33.22 Serous retinal detachment, left eye (principal); I25.10 Atherosclerotic heart disease of native coronary artery without angina pectoris; I10 Essential (primary) hypertension; E78.5 Hyperlipidemia, unspecified; E11.9 Type 2 diabetes mellitus without complications; E03.9 Hypothyroidism, unspecified; E66.9 Obesity, unspecified; Z68.28 Body mass index [BMI] 28.0-28.9, adult; N40.0 Benign prostatic hyperplasia without lower urinary tract symptoms; Z95.1 Presence of aortocoronary bypass graft; Z87.891 Personal history of nicotine dependence; Z79.82 Long term (current) use of aspirin; Z79.02 Long term (current) use of antithrombotics/antiplatelets; Z79.899 Other long term (current) drug therapy; I65.23 Occlusion and stenosis of bilateral carotid arteries
CPT/HCPCS: 36415; 70496; 70498; 80053; 81003; 85025; 85055; 85610; 85730; 99285; Q9967

== ENCOUNTER 2024-04-03 13:02 | Outpatient (CLI) | payer MEDICARE, BC, SELFPAY ==
--- NOTE | ~2024-04-03 | US_ITS ---
EXAMINATION: US carotid duplex BI DATE: 04/03/2024 13:34 INDICATION: Carotid artery disease with coronary stenosis TECHNIQUE: Grayscale, color Doppler, and pulsed Doppler images of the cervical carotid arteries were obtained. The degree of vessel stenosis is placed in one of the following categories: normal, <50%, 5 0-69%, >=70% but less than near-occlusion, near-occlusion, or total occlusion. Note that percent sten osis relative to normal distal artery lumen diameter is indirectly measured from velocity measurement s as described by Cody, et al. Radiology 2003; 229:340-346. COMPARISON: CT dated 12/20/2023 FINDINGS: RIGHT: The right common carotid artery (CCA) peak systolic velocity (PSV) is 92 cm/s. The right internal car otid artery (ICA) PSV is 84 cm/s. The right ICA end-diastolic velocity (EDV) is 19 cm/s. The right IC A/CCA PSV ratio is 0.9. Grayscale and color Doppler images yield an estimate of <50% diameter reducti on from plaque in the ICA. The external carotid artery (ECA) PSV is 104 cm/s. There is antegrade flow in the right vertebral artery. There is a presteal waveform at the right vertebral artery with notch between 2 systolic peaks. LEFT: The left CCA PSV is 97 cm/s. The left ICA PSV is 148 cm/s. The left ICA EDV is 32 cm/s. The left ICA/ CCA PSV ratio is 1.5. Grayscale and color Doppler images yield an estimate of 50-69% diameter reducti on from plaque in the ICA. The ECA PSV is 125 cm/s. There is antegrade flow in the left vertebral art franck. IMPRESSION: 1. <50% stenosis in the right internal carotid artery. 2. 50-69% stenosis in the left internal carotid artery. 3. Pre subclavian steal waveform in the right vertebral artery suggesting a hemodynamically significa nt stenosis in the more proximal right subclavian artery. Reviewed, dictated and finalized at location B. ON INSTALLER IMPRESSION: 1. <50% stenosis in the right internal carotid artery. 2. 50-69% stenosis in the left internal carotid artery. 3. Pre subclavian steal waveform in the right vertebral artery suggesting a hem odynamically significant stenosis in the more proximal right subclavian artery.
== END 2024-04-03 13:03 | disposition home or self-care (01) ==
PROVIDERS: PCP Family Medicine
DX: I65.23 Occlusion and stenosis of bilateral carotid arteries (principal)
CPT/HCPCS: 93880

== ENCOUNTER 2025-01-01 13:53 | Outpatient (CLI) | payer MEDICARE, BC, SELFPAY ==
--- NOTE | ~2025-01-01 | XR_ITS ---
XR lumbar spine 2-3V Indication: worsening chronic low back pain Comparison: None Findings: Moderate loss of vertebral height throughout. Mild dextroconvex scoliosis. Grade 1 retrolisthesis L2 on L3, no acute fracture. Severe loss of disc height throughout. Soft tissues unremarkable Impression: No acute abnormality. Reviewed, dictated and finalized at location P. Impression: No acute abnormality.
== END 2025-01-01 13:54 | disposition home or self-care (01) ==
LOC: MICIMG 13:56
PROVIDERS: PCP Family Medicine; Visit Provider Internal Medicine
DX: M54.50 Low back pain, unspecified (principal)
CPT/HCPCS: 72100

== ENCOUNTER 2025-02-01 01:43 | Day surgery (SDC) | payer MEDICARE, BC, SELFPAY ==
--- OUTSIDE RECORDS SUMMARY | 2007-05-17 09:31 | XMS_ITS | Continuity of Care Document ---
Author Organization [facility] Address [address] [place] [address] Exec utive [facility] [address] [place] [address] Phone Care Team Providers Care Nut Culler Name Role Phone Kat Allan Unavailable Unavailable Procedures Procedure Date Eye Exam Established Pt Advance Directives Directive Yes / No Effective Date File Name No Information Encounters Encounter Description Practice Location Reason(s) For Visit Diagnoses Date Provider Providers Copied on Encounter [facility], [id number] [place] [address] [address], [place], [place], [id number], [place] tel:[phone] SEC [facility] No Information [address] [facility] , [address], [place], [address], [place]. tel:[phone] Family History Family Member Type Diagnosis Age At Onset No Information Payers Payer name Insurance type Covered alliance party ID Authoriza tion(s) [place] FEP BL [id number] [facility] Out Of State [id number] Social History Type Description Quantity Date Captured Comments Sex Male Smoking Status No Information Chief Complaint And Reason For Visit No Information Reason For Referral Reason For Referral No Information History Of Present Illness Encounter Date Complaint History Of Prese nt Illness No Information Functional Status Date Functional Assessmen t No Information Instructions Date Instruction Additional Infor mation No Information Assessments Type Assessment Date No Information Patient Care Teams Name Effective Dates (start - stop) Status Members No Information
--- OUTSIDE RECORDS SUMMARY | 2024-10-09 12:30 | XMS_ITS ---
Author Organization [facility] [place] ([address]) Address [address] [place] [address] Care Team Providers Care Movie Star Name Role Phone Faustino Jarrett MD Primary Care Provider UnavailCaridad Fernandez Unavailable [phone] Ever Sanchez Unavailable [phone] REASON FOR VISIT SCIT (Aeroallergen) Social History Sex Assigned At : Social History Observation Description Sex Assigned At Male Encounters Encounter Location Date Provider Diagnosis [facility] [address] [place] [address] 10/09/2024 Ever Sanchez Plan Of Treatment Next Appt Details Provider Name:Ever Sanchez , 02/21/2025 09:00:00 AM, [address] [facility], [address], [place], [address], Progress Notes * Vitaliy GARCIAOB:1945 (79 yo M)Acc No.[id number]:10/09/2024 SCIT-Aeroallergen Patient: Miguel DELGADO Provider: Delfino Sanchez MD :1945 A ge:79 Y S ex:Male Date:10/09/2024 Address:[address] [place] Pcp:Faustino Jarrett MD Subjective: * Chief Complaints: * 1 . SCIT (Aeroallergen). * Medical History: Objective: * Vitals: Assessment: Plan: * Treatment: * Billing Information: * Visit Code: * Procedure Codes: * Electronic signature of Lita Sanchez MD, [facility] on 02/01/2025 at 01:45 AM CDT Sign off status: Pending * Provider: Delfino Sanchez MD Date: 0 10/09/2024 Generated for [facility] adelita/Jefferson/Germainsmeulalio on: 1 01:45 AM CDT
--- OUTSIDE RECORDS SUMMARY | 2024-12-28 12:30 | XMS_ITS ---
Author Organization [facility] [employer] [place] ([address]) Address [address] [place] [address] Care Team Providers Care Demo Specialist Name Role Phone Faustino Jarrett MD Primary Care Provider Caridad Eckert Unavailable [phone] Ever Sanchez Unavailable [phone] REASON FOR VISIT SCIT - Traditional Schedule Allergy immunotherapy (Week ) Social History Sex Assigned At : Social History Observation Description Sex Assigned At Male Encounters Encounter Location Date Provider Diagnosis [facility] [address] [place] [address] 12/28/2024 Ever Sanchez Allergic rhinitis du e to pollen J30.1 ; Allergic rhinitis due to animal (cat) (dog) hair and dander J30.81 ; Other allergic rhinitis J30.89 and Other chronic allergic conjunctivitis H10.45 Assessments Encounter Date Diagnosis (ICD Code) Assessment Notes Treatment Notes Treatment Clinical Notes Section Notes 12/28/2024 Allergic rhinitis due to pollen (ICD-10 - J30.1) 12/28/2024 Allergic rhinitis due to animal (cat) (dog) hair and dander (ICD-10 - J30.81) 12/28/2024 Other allergic rhinitis (ICD-10 - J30.89) 12/28/2024 Other chronic allergic conjunctivitis (ICD-10 - H10.45) Plan Of Treatment Next Appt Details Follow Up: 1 Week, Reason: Provider Name:Ever Sanchez , 02/21/2025 09:00:00 AM, [address] [place] [address], [address], [place], [address], Progress Notes * Vitaliy GARCIAOB:1945 (79 yo M)Acc No.[id number]:12/28/2024 SCIT-Aeroallergen Patient: Miguel DELGADO Provider: Delfino Sanchez MD :1945 A ge:79 Y S ex:Male Date:12/28/2024 [facility] Pcp:Faustino Jarrett MD Subjective: * Chief Complaints: * 1 . SCIT - Traditional Schedule Allergy immunotherapy (Week ). * HPI: * Introduction: The patient is here for scheduled immunotherapy. Please see the attached specialty form regarding the specifics of the administration of these vaccines. As per our protocol, they must undergo a screening health questionnaire (medication changes, reaction(s) to last immunotherapy dose(s), current health status, ACT (if appropriate), self-injectable epinephrine on patient(?) and peak flow (if appropriate)). Also, the patient must wait in our office for 30 minutes after receiving the vaccine(s). Furthermore, every patient must have an epinephrine pen (self-injectable) with them at the time of administration--and carry if for the following 1.5 hours after they leave our office. The patient must also have taken their antihistamine the day of the injection, preferably 2 hours prior. The consent form for SCIT (subcutaneous immunotherapy) is on file. * Medical History: Objective: * Vitals: Assessment: * Assessment: 1. A llergic rhinitis due to pollen - J30.1 (Primary) 2 . A llergic rhinitis due to animal (cat) (dog) hair and dander - J30.81 3 . O ther allergic rhinitis - J30.89 4 . O ther chronic allergic conjunctivitis - H10.45 Plan: * Treatment: * Preventive Medicine: Counseling: E xercise A void heavy lifting on days of allergy immunotherapy. M edication instruction: I njectable epinephrine education and instruction w/ discussion of signs and symptoms of anaphylaxis and reasons to seek urgent or emergent care, Watch for side effects of prescribed medications. E ducation: A ble to return demonstration of self-injectable epinephrine. * Follow Up: 1 Week * Billing Information: * Visit Code: * Procedure Codes: 13249 IMMUNOTHERAPY INJECTIONS. * Electronic signature of Lita Sanchez MD, FAAAAI on 02/01/2025 at 01:45 AM CDT Sign off status: Pending * Provider: Delfino Sanchez MD Date: 0 12/28/2024 Generated for Nauni adelita/Jefferson/Jignesh on: 1 01:45 AM CDT History and Physical Notes * HPI (History of Present Illness) Category Sub-Category Detail Notes Category Not es *Introduction The patient is here for scheduled immunotherapy. Please see the attached specialty form regarding the specifics of the administration of these vaccines. As per our protocol, they must undergo a screening health questionnaire (medication changes, reaction(s) to last immunotherapy dose(s), current health status, ACT (if appropriate), self-injectable epinephrine on patient(?) and peak flow (if appropriate)). Also, the patient must wait in our office for 30 minutes after receiving the vaccine(s). Furthermore, every patient must have an epinephrine pen (self-injectable) with them at the time of administration--and carry if for the following 1.5 hours after they leave our office. The patient must also have taken their antihistamine the day of the injection, preferably 2 hours prior. The consent form for SCIT (subcutaneous immunotherapy) is on file.
[2025-01-18 12:54] VITALS: BMI 28.9
--- NOTE | 2025-01-18 13:50 | PC.NURSE ---
Spoke with patient regarding medication Plavix. Patient verbalizes understanding that the last dose is to be taken on 01/24/2025 and the Endoscopist will instruct them when to restart after the procedure. Patient to remain on his Aspirin 81mg daily.
--- OUTSIDE RECORDS SUMMARY | 2025-02-01 01:45 | XMS_ITS | Encounter Summary ---
Author Organization [facility] Address [address] [place] [address] Care Team Providers Care Insurance Compliance Analyst Name Role Phone Faustino Jarrett MD Primary Care Provider [phone] Encounter Details Date Type Department Care Team (Late st Contact Info) Description 12/20/2023 Ophth Exam [facility] [address] [place] [id number] Sriram Prince MD [address] 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
--- OUTSIDE RECORDS SUMMARY | 2025-02-01 01:45 | XMS_ITS | Clinical Summary ---
Author Organization [facility] Address [address] [place] [address] Care Team Providers Care Livestock Brands Inspector Name Role Phone Faustino Jarrett MD Primary Care Provider [phone] Source Comments [facility],non-owned Affiliates and Associated Physician Practices is amultiple site organization consisting of ambulatory clinics and hospital sitesin [place], [place], [place] and [place]. This disclosure is being madepursuant to the Care Everywhere program and may not contain all information available regarding this patient. Last updated 17.[facility] Allergies Active Allergy Reactions Criticality Noted Date Comments Dust Mite Extract Skin Reactions 03/28/2024 Medications * Be aware that medications may not be up to date on this document. Alwaysverify current medications with the patient. levothyroxine (SYNTHROID) 50 MCG tablet Take 1 (one) tablet by mouth at bedtime Active nisoldipine CR 24hr (SULAR) 20 MG tablet TK 1 T PO QD 2 7 Active tamsulosin (FLOMAX) 0.4 MG capsule TK 2 CS PO D . TK 1/2 HOUR FOLLOWING THE SAME MEAL EACH DAY 0 7 Active traZODone (DESYREL) 150 MG tablet Take 0.5 (one-half) tablet by mouth at bedtime 2 7 Active clopidogrel (plaVIX) 75 MG tablet Take 1 (one) tablet by mouth once daily Active atorvastatin (Lipitor) 40 MG tablet Take 1 (one) tablet by mouth at bedtime Active aspirin (Aspirin) 81 MG chew tablet Take 1 (one) tablet by mouth once daily 4 Active ALPRAZolam (Xanax) 0.25 MG tablet TAKE 1 TABLET BY MOUTH THREE TIMES DAILY NEEDED FOR TREMORS 4 Active carvedilol (Coreg) 12.5 MG tablet TAKE 1 TABLET BY MOUTH EVERY 12 HOURS WITH FOOD 4 Active cetirizine (ZyrTEC) 10 MG tablet Take 1 (one) tablet by mouth 2 times daily 4 Active EPINEPHrine (Epipen) 0.3 MG/0.3ML auto-injector pen INJECT 1 PEN IN THE MUSCLE ONE TIME DIRECTED 4 Active gabapentin (Neurontin) 300 MG capsule TAKE 1 CAPSULE BY MOUTH THREE TIMES DAILY NEEDED FOR PAIN 4 Active oxyBUTYnin CR 24hr (Ditropan XL) 15 MG tablet Take 1 (one) tablet by mouth at bedtime 4 Active lisinopril (Prinivil; Zestril) 30 MG tablet Take 1 (one) tablet by mouth once daily 5 Active montelukast (Singulair) 10 MG tablet TAKE 1 TABLET BY MOUTH DAILY Orally Once a day for 90 days Active Active Problems Problem Noted Date Diagnosed Date History of transient ischemic attack (TIA) 12/19 Low back pain 03/19/2011 Overview (02/10/2015): Chronic pain 10/28/2010 Encounters Date Type Department Care Team Description 11/10/2024 Travel from Last 3 Months Family History Medical History Relation Name Comments Blindness Neg Hx Cataract Neg Hx Glaucoma Neg Hx Macular Degeneration Neg Hx Social History Tobacco Use Types Packs/Day Years Used Date Smoking Tobacco: Former Cigarettes Passive Smoke Exposure: Yes Smokeless Tobacco: Never Tobacco Cessation:Counseling Given: Not Answered Sex and Gender Information Value Date Recorded Sex Assigned at Not on file 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 Gender Identity Not on file Sexual Orientation Not on file Last Filed Vital Signs Vital Sign Reading Time Taken Comments Blood Pressure 160/78 07/26/2024 11:51 AM CDT Pulse 82 07/26/2024 11:51 AM CDT Temperature 36.6 C (97.8 F) 12/20/2023 10:31 AM CDT Respiratory Rate 14 07/26/2024 11:51 AM CDT Oxygen Saturation 98% 12/21/2023 7:39 AM CDT Inhaled Oxygen Concentration - - Weight 102.1 kg (225 lb) 07/26/2024 11:51 AM CDT Height 188 cm (6' 2) 07/26/2024 11:51 AM CDT Body Mass Index 28.89 07/26/2024 11:51 AM CDT Plan of Treatment Health Maintenance Due Date Last Done Comments MEDICARE AWV 12 MONTHS 1945 HEPATITIS C SCREENING 04/20/1965 DTAP/TDAP/TD VACCINES (1 - Tdap) 1966 PNEUMOCOCCAL VACCINE 50+ (1 of 1 - PCV) 1997 ZOSTER VACCINE (1 of 2) 1997 Respiratory Syncytial Virus (RSV) Vaccine Pt: or over 60 yrs (1 - 1-dose 75+ series) 2022 DEPRESSION SCREENING 04/05/2024 COVID-19 VACCINE ( season) 2024 11/19/2022, 02/06/2022, 08/18/2021, Additional history exists INFLUENZA VACCINE (#1) 2024 3, 12/22/2021, 12/26/2020, Additional history exists SCREENING FOR DIABETES 12/20/2026 4, 12/21/2023, 12/20/2023, Additional history exists HEPATITIS B VACCINE Aged Out No longe r eligible based on patient's age to complete this topic HIB VACCINE Aged Out No longer eligi ble based on patient's age to complete this topic HPV VACCINE Aged Out No longer eligi ble based on patient's age to complete this topic MENINGOCOCCAL (Group B) VACCINE SHARED DECISION-MAKING Aged Out No longer eligible based on patient's age to complete this topic MENINGOCOCCAL GROUPS A/C/Y/W VACCINE Aged Out No longer eligible based on patient's age to complete this topic Medical Devices Implanted Type Area Power Lineman Device Identifier Shelf Expiration Date Model / Serial / Lot Urolift Procedures Procedure Name Priority Date/Time Associated Diagnosis Comments BASIC METABOLIC PANEL (CALCIUM TOTAL) STAT 12/21/2023 4:32 AM CDT from Last 3 Months or Most Recently Relevant to Health Maintenance Results * (ABNORMAL) BASIC METABOLIC PANEL (CALCIUM TOTAL) (12/21/2023 4:32 AM [facility]) BUN 12 7 - 26 mg/dL 12/21/2023 5:05 AM [facility] Creatinine 0.96 0.71 - 1.16 mg/dL 12/21/2023 5:05 AM [facility] Sodium 137 136 - 145 mmol/L 12/21/2023 5:05 AM [facility] Potassium 4.0 3.5 - 4.5 mmol/L 12/21/2023 5:05 AM [facility] Chloride 105 98 - 107 mmol/L 12/21/2023 5:05 AM [facility] CO2 23 22 - 29 mmol/L 12/21/2023 5:05 AM [facility] Glucose 114 70 - 115 mg/dL 12/21/2023 5:05 AM [facility] Calcium 9.1 8.4 - 10.2 mg/dL 12/21/2023 5:05 AM [facility] Anion Gap 9 6 - 16 12/21/2023 5:05 AM [facility] BUN/Creatinine Ratio 13 7 - 23 12/21/2023 5:05 AM [facility] Osmolality Calculated 285 275 - 295 mOsm/kg 12/21/2023 5:05 AM [facility] eGFR by CKD-EPI 82(L) >=90 mL/min/1.7 3 m2 12/21/2023 5:05 AM [facility] Blood BLOOD SPECIMEN / Unknown Venipuncture / Unknown 12/21/2023 4:32 AM CDT 12/21/2023 4:41 AM [facility] us Lorenza Navarro MD LAB - CHEMISTRY ORDERABLES Fin al Result [facility] [address] [place] [address], [facility] [phone] from Last 3 Months or Most Recently Relevant to Health Maintenance Insurance [facility] MEDICARE MEDICARE [facility] Advance Directives * Full Code (Latest Code Status on File) Date Activated Date Inactivated Comments 12/20/2023 5:03 PM 12/21/2023 12:36 PM Care Teams Livestock Brands Inspector Relationship Specialty Start Date End Date Faustino Jarrett MD [address] [place] [address] PCP - General 05/03/18
--- OUTSIDE RECORDS SUMMARY | 2025-02-01 01:45 | XMS_ITS | Patient Health Record ---
Author Organization [facility] [address] ([address]) Address [address] [facility] [address] [place] [address] Care Team Providers Care Automat Watcher Name Role Phone Faustino Jarrett MD Primary Care Provider UnavailCaridad Fernandez Unavailable [phone] Ever Sanchez Unavailable [phone] Nikos Gurrola Unavailable [phone] Allergies No Known Allergies Reason For Referral No Information Medications Medication SIG (Take, Route, Frequency, Duration) Notes Start Date End Date Status Iron 325 (65 Fe) MG 1 tablet Orally Thre e times a Week Active Stool Softener 100 MG 1 capsule as neede d Orally Once a day Active Tamsulosin HCl 0.4 MG 1 capsule Orally O nce a day Active oxyBUTYnin Chloride ER 15 MG 1 tablet Orally Once a day Active Famotidine 20 MG 1 tablet Orally twic e a day; Duration: 30 days Active traZODone HCl 50 MG 1 tablet at bedtime as needed Orally Once a day Active Cetirizine HCl 10 MG 1 tablet Orally twi ce a day; Duration: 30 days Active Lisinopril 30 MG 1 tablet Orally Once a day Active EPINEPHrine 0.3 MG/0.3ML as directed Inj ection as needed; Duration: 30 days Active Levothyroxine Sodium 50 MCG 1 tablet in the morning on an empty stomach Orally Once a day Active Montelukast Sodium 10 MG 1 tablet Orally Once a day; Duration: 30 days Active Carvedilol 12.5 MG 1 tablet with food Orally Twice a day Active Clopidogrel Bisulfate 75 MG 1 tablet Orally Once a day Active Atorvastatin Calcium 40 MG 1 tablet Orally Once a day Not-Taking SIT (Traditional) variable - see record per schedule subcutaneous per schedule; Duration: 999 days Active Montelukast Sodium 10 MG TAKE 1 TABLET B Y MOUTH DAILY; Duration: 90 Active Aspirin 81 MG 1 tablet Orally Once a day Active Social History Tobacco Use: Social History Observation Description Date Details (start date - stop date) Former Smoker NA - NA Sex Assigned At : Social History Observation Description Sex Assigned At Male Tobacco Control (Standard) Question Answer Notes Tobacco use: Former smoker How long has it been since you last smoked? Grea ter than 10 years Problems Problem Type SNOMED Code ICD Code Onset Dates Problem Status W/U Status Risk Notes Problem Chronic allergic conjunctivitis (94816538) Other chronic allergic conjunctivitis (H10.45) Active confirmed Problem Essential hypertension (12812919) Essential (primary) hypertension (I10) Active confirmed Problem Allergic rhinitis caused by pollen (disorder) (36925549) Allergic rhinitis due to pollen (J30.1) Active confirmed Problem Allergic rhinitis (03492941) Other allergic rhinitis (J30.89) Active confirmed Problem Chronic rhinitis (46506358) Chronic rhinitis (J31.0) Active confirmed Problem Hypertrophy of nasal turbinates (37856348) Hypertrophy of nasal turbinates (J34.3) Active confirmed Problem Uncomplicated mild persistent asthma (202388711) Mild persistent asthma, uncomplicated (J45.30) Active confirmed Problem Uncomplicated moderate persistent asthma (829613989) Moderate persistent asthma, uncomplicated (J45.40) Active confirmed Problem Uncomplicated severe persistent asthma (723545420) Severe persistent asthma, uncomplicated (J45.50) Active confirmed Problem Pruritus (406225650) Pruritus, unspecified (L29.9) Active confirmed Problem Allergic rhinitis caused by animal hair and dander (611613779196098) Allergic rhinitis due to animal (cat) (dog) hair and dander (J30.81) Active confirmed Vital Signs Respiratory Rate 17 /min 12/28/2024 Oximetry 98 % 12/28/2024 Blood pressure diastolic 75 mm Hg 12/28/2024 Height 74 in 12/28/2024 Blood pressure systolic 175 mm Hg 12/28/2024 Weight 225.4 lbs 12/28/2024 BMI 28.94 kg/m2 12/28/2024 Encounters Encounter Location Date Provider Diagnosis [facility] [address] [facility] [address] [place] [phone] 04/19/2024 Ever Daniel Allergic rhinitis du e to pollen J30.1 ; Allergic rhinitis due to animal (cat) (dog) hair and dander J30.81 ; Other allergic rhinitis J30.89 and Other chronic allergic conjunctivitis H10.45 [facility] [address] [place] [address] [address] [phone] 04/06/2024 Ever Daniel Allergic rhinitis du e to pollen J30.1 ; Allergic rhinitis due to animal (cat) (dog) hair and dander J30.81 ; Other allergic rhinitis J30.89 and Other chronic allergic conjunctivitis H10.45 [facility] [address] [place] [address] [facility] [address] [address] 03/22/2024 Ever Daniel Allergic rhinitis du e to pollen J30.1 ; Allergic rhinitis due to animal (cat) (dog) hair and dander J30.81 ; Other allergic rhinitis J30.89 and Other chronic allergic conjunctivitis H10.45 [facility] [address] [place] [phone] 03/15/2024 Everbrooke Sanchez Allergic rhinitis du e to pollen J30.1 ; Allergic rhinitis due to animal (cat) (dog) hair and dander J30.81 ; Other allergic rhinitis J30.89 and Other chronic allergic conjunctivitis H10.45 [facility] [address] [place] [address] [address] [address] 03/08/2024 Ever Sanchez Allergic rhinitis du e to pollen J30.1 ; Allergic rhinitis due to animal (cat) (dog) hair and dander J30.81 ; Other allergic rhinitis J30.89 and Other chronic allergic conjunctivitis H10.45 [facility] [address] [place] [address] [facility] [address] [place] [phone] 03/01/2024 Everbrooke Sanchez Allergic rhinitis du e to pollen J30.1 ; Allergic rhinitis due to animal (cat) (dog) hair and dander J30.81 ; Other allergic rhinitis J30.89 and Other chronic allergic conjunctivitis H10.45 [facility] [address] [place] [address] [facility] [address] [place] [phone] 01/24/2025 Ever Sanchez Allergic rhinitis du e to pollen J30.1 ; Allergic rhinitis due to animal (cat) (dog) hair and dander J30.81 ; Other allergic rhinitis J30.89 and Other chronic allergic conjunctivitis H10.45 [facility] [address] [place] [address] [address] [address] 11/30/2024 Ever Sanchez Allergic rhinitis du e to pollen J30.1 ; Allergic rhinitis due to animal (cat) (dog) hair and dander J30.81 ; Other allergic rhinitis J30.89 and Other chronic allergic conjunctivitis H10.45 [facility] [address] [place] [address] [address] [address] 11/02/2024 Ever Sanchez Allergic rhinitis du e to pollen J30.1 ; Allergic rhinitis due to animal (cat) (dog) hair and dander J30.81 ; Other allergic rhinitis J30.89 and Other chronic allergic conjunctivitis H10.45 [facility] [address] [place] [address] [address] [address] 10/05/2024 Ever Sanchez Allergic rhinitis du e to pollen J30.1 ; Allergic rhinitis due to animal (cat) (dog) hair and dander J30.81 ; Other allergic rhinitis J30.89 and Other chronic allergic conjunctivitis H10.45 [facility] [address] [place] [address] [address] [address] 09/12/2024 Ever Sanchez Allergic rhinitis du e to pollen J30.1 ; Allergic rhinitis due to animal (cat) (dog) hair and dander J30.81 ; Other allergic rhinitis J30.89 and Other chronic allergic conjunctivitis H10.45 [facility] [address] [place] [address] [address] [address] 08/15/2024 Ever Daniel Allergic rhinitis du e to pollen J30.1 ; Allergic rhinitis due to animal (cat) (dog) hair and dander J30.81 ; Other allergic rhinitis J30.89 and Other chronic allergic conjunctivitis H10.[address] [facility] [address] [address] 07/19/2024 Ever Daniel Allergic rhinitis du e to pollen J30.1 ; Allergic rhinitis due to animal (cat) (dog) hair and dander J30.81 ; Other allergic rhinitis J30.89 and Other chronic allergic conjunctivitis H10.45 [facility] [address] [place] [phone] 07/12/2024 Ever Sanchez Allergic rhinitis du e to pollen J30.1 ; Allergic rhinitis due to animal (cat) (dog) hair and dander J30.81 ; Other allergic rhinitis J30.89 and Other chronic allergic conjunctivitis H10.45 [facility] [address] [place] [phone] 07/06/2024 Ever Sanchez Allergic rhinitis du e to pollen J30.1 ; Allergic rhinitis due to animal (cat) (dog) hair and dander J30.81 ; Other allergic rhinitis J30.89 and Other chronic allergic conjunctivitis H10.45 [facility] [address] [place] [phone] 05/17/2024 Ever Sanchez Allergic rhinitis du e to pollen J30.1 ; Allergic rhinitis due to animal (cat) (dog) hair and dander J30.81 ; Other allergic rhinitis J30.89 and Other chronic allergic conjunctivitis H10.45 [facility] [address] [place] [phone] 12/28/2024 Caridad Young Pruritus, unspecifie d L29.9 ; Allergic rhinitis due to pollen J30.1 ; Allergic rhinitis due to animal (cat) (dog) hair and dander J30.81 ; Other allergic rhinitis J30.89 and Other chronic allergic conjunctivitis H10.45 [facility] [address] [place] [phone] 06/05/2024 Nikos Langstonff Pruritus, unspecifie d L29.9 ; Allergic rhinitis due to pollen J30.1 ; Allergic rhinitis due to animal (cat) (dog) hair and dander J30.81 ; Other allergic rhinitis J30.89 and Other chronic allergic conjunctivitis H10.[address] [address] 02/23/2024 Ever Sanchez Allergic rhinitis du e to pollen J30.1 ; Allergic rhinitis due to animal (cat) (dog) hair and dander J30.81 ; Other allergic rhinitis J30.89 and Other chronic allergic conjunctivitis H10.[address] [address] 02/16/2024 Ever Sanchez Allergic rhinitis du e to pollen J30.1 ; Allergic rhinitis due to animal (cat) (dog) hair and dander J30.81 ; Other allergic rhinitis J30.89 and Other chronic allergic conjunctivitis H10.[address] [address] 02/09/2024 Ever Sanchez Allergic rhinitis du e to pollen J30.1 ; Allergic rhinitis due to animal (cat) (dog) hair and dander J30.81 ; Other allergic rhinitis J30.89 and Other chronic allergic conjunctivitis H10.[address] [address] 05/03/2024 Ever Sanchez Allergic rhinitis du e to pollen J30.1 ; Allergic rhinitis due to animal (cat) (dog) hair and dander J30.81 ; Other allergic rhinitis J30.89 and Other chronic allergic conjunctivitis H10.[address] [address] 12/26/2024 Caridad Brownlee, unspecifie d L29.9 Assessments Encounter Date Diagnosis (ICD Code) Assessment Notes Treatment Notes Treatment Clinical Notes Section Notes 02/09/2024 Allergic rhinitis due to pollen (ICD-10 - J30.1) 02/16/2024 Allergic rhinitis due to pollen (ICD-10 - J30.1) 03/01/2024 Allergic rhinitis due to pollen (ICD-10 - J30.1) 03/08/2024 Allergic rhinitis due to pollen (ICD-10 - J30.1) 03/15/2024 Allergic rhinitis due to pollen (ICD-10 - J30.1) 03/22/2024 Allergic rhinitis due to pollen (ICD-10 - J30.1) 04/06/2024 Allergic rhinitis due to pollen (ICD-10 - J30.1) 04/19/2024 Allergic rhinitis due to pollen (ICD-10 - J30.1) 05/03/2024 Allergic rhinitis due to pollen (ICD-10 - J30.1) 05/17/2024 Allergic rhinitis due to pollen (ICD-10 - J30.1) 02/23/2024 Allergic rhinitis due to pollen (ICD-10 - J30.1) 06/05/2024 Allergic rhinitis due to pollen (ICD-10 - J30.1) Miguel clearly suffers from mild atopic disease based upon our ImmunoCAPs and clinical history. Unable to perform SPT due to trazodone use. Accordingly, we have introduced a new, aggressive medication regimen, discussed nasal washes and allergy-specific avoidance measures. He has since completed cluster build-up with minimal issue. Currently on new vial build-up. Procedure tolerated today without large local or systemic reaction. Continue to premedicate with Zyrtec. Keep AIE on hand 2 hours after SCIT. Return per schedule for SCIT and in 6 months for E&M 07/06/2024 Allergic rhinitis due to pollen (ICD-10 - J30.1) 07/12/2024 Allergic rhinitis due to pollen (ICD-10 - J30.1) 07/19/2024 Allergic rhinitis due to pollen (ICD-10 - J30.1) 08/15/2024 Allergic rhinitis due to pollen (ICD-10 - J30.1) 09/12/2024 Allergic rhinitis due to pollen (ICD-10 - J30.1) 10/05/2024 Allergic rhinitis due to pollen (ICD-10 - J30.1) 11/02/2024 Allergic rhinitis due to pollen (ICD-10 - J30.1) 06/05/2024 Pruritus, unspecified (ICD-10 - L29.9) Recurrent diffuse itchiness occurring diffusely for the past few years. He has been following with Dr. Dillon at [facility]. No related rash. Already on a moisturizing regimen along with switching to preservative and dye-free products. Recent labwork with PCP shows normal liver enzymes with lower RBC (present whole life), normal TSH (06/2022) and normal BARBARA (2021). Never received records from PCP and derm. Use of triple antihistamine therapy resolves itch. Baseline tryptase level was WNL and aeroallergen panel showed IgE >1600. He has since started SCIT based on said results; having completed cluster build-up. He notes significant benefit since doing so. Will plan to hold Singulair and potentially Pepcid if itch remains resolved. Return per schedule for SCIT and in 6 months for E&M 11/30/2024 Allergic rhinitis due to pollen (ICD-10 - J30.1) 12/26/2024 Pruritus, unspecified (ICD-10 - L29.9) 12/28/2024 Allergic rhinitis due to pollen (ICD-10 - J30.1) Miguel clearly suffers from mild atopic disease based upon our ImmunoCAPs and clinical history. Unable to perform SPT due to trazodone use. Accordingly, we have introduced a new, aggressive medication regimen, discussed nasal washes and allergy-specific avoidance measures. He has since completed cluster build-up with minimal issue. Currently on new vial build-up. Procedure tolerated today without large local or systemic reaction. Continue to premedicate with Zyrtec. Keep AIE on hand 2 hours after SCIT. Return per schedule for SCIT and in 6 months for E&M 12/28/2024 Pruritus, unspecified (ICD-10 - L29.9) Recurrent diffuse itchiness occurring diffusely for the past few years. He has been following with Dr. Dillon at [facility]. No related rash. Already on a moisturizing regimen along with switching to preservative and dye-free products. Recent labwork with PCP shows normal liver enzymes with lower RBC (present whole life), normal TSH (06/2022) and normal BARBARA (2021). Never received records from PCP and derm. Use of triple antihistamine therapy resolves itch. Now using less. Baseline tryptase level was WNL and aeroallergen panel showed IgE >1600. He has since started SCIT and has seen clear improvement in itchign. Also moisturizing more regularly. No longer seen derm. Continue schedule for SCIT and in 6 months for E&M 01/24/2025 Allergic rhinitis due to pollen (ICD-10 - J30.1) 01/24/2025 Allergic rhinitis due to animal (cat) (dog) hair and dander (ICD-10 - J30.81) 12/28/2024 Allergic rhinitis due to animal (cat) (dog) hair and dander (ICD-10 - J30.81) Follow allergen avoidance, meds and continue SCIT as an adjunctive treatment to current regimen 11/30/2024 Allergic rhinitis due to animal (cat) (dog) hair and dander (ICD-10 - J30.81) 06/05/2024 Allergic rhinitis due to animal (cat) (dog) hair and dander (ICD-10 - J30.81) Follow allergen avoidance, meds and continue SCIT as an adjunctive treatment to current regimen 11/02/2024 Allergic rhinitis due to animal (cat) (dog) hair and dander (ICD-10 - J30.81) 10/05/2024 Allergic rhinitis due to animal (cat) (dog) hair and dander (ICD-10 - J30.81) 09/12/2024 Allergic rhinitis due to animal (cat) (dog) hair and dander (ICD-10 - J30.81) 08/15/2024 Allergic rhinitis due to animal (cat) (dog) hair and dander (ICD-10 - J30.81) 07/19/2024 Allergic rhinitis due to animal (cat) (dog) hair and dander (ICD-10 - J30.81) 07/12/2024 Allergic rhinitis due to animal (cat) (dog) hair and dander (ICD-10 - J30.81) 07/06/2024 Allergic rhinitis due to animal (cat) (dog) hair and dander (ICD-10 - J30.81) 02/23/2024 Allergic rhinitis due to animal (cat) (dog) hair and dander (ICD-10 - J30.81) 05/17/2024 Allergic rhinitis due to animal (cat) (dog) hair and dander (ICD-10 - J30.81) 05/03/2024 Allergic rhinitis due to animal (cat) (dog) hair and dander (ICD-10 - J30.81) 04/19/2024 Allergic rhinitis due to animal (cat) (dog) hair and dander (ICD-10 - J30.81) 04/06/2024 Allergic rhinitis due to animal (cat) (dog) hair and dander (ICD-10 - J30.81) 03/22/2024 Allergic rhinitis due to animal (cat) (dog) hair and dander (ICD-10 - J30.81) 03/15/2024 Allergic rhinitis due to animal (cat) (dog) hair and dander (ICD-10 - J30.81) 03/08/2024 Allergic rhinitis due to animal (cat) (dog) hair and dander (ICD-10 - J30.81) 03/01/2024 Allergic rhinitis due to animal (cat) (dog) hair and dander (ICD-10 - J30.81) 02/16/2024 Allergic rhinitis due to animal (cat) (dog) hair and dander (ICD-10 - J30.81) 02/09/2024 Allergic rhinitis due to animal (cat) (dog) hair and dander (ICD-10 - J30.81) 02/09/2024 Other allergic rhinitis (ICD-10 - J30.89) 02/16/2024 Other allergic rhinitis (ICD-10 - J30.89) 03/01/2024 Other allergic rhinitis (ICD-10 - J30.89) 03/08/2024 Other allergic rhinitis (ICD-10 - J30.89) 03/15/2024 Other allergic rhinitis (ICD-10 - J30.89) 03/22/2024 Other allergic rhinitis (ICD-10 - J30.89) 04/06/2024 Other allergic rhinitis (ICD-10 - J30.89) 04/19/2024 Other allergic rhinitis (ICD-10 - J30.89) 05/03/2024 Other allergic rhinitis (ICD-10 - J30.89) 05/17/2024 Other allergic rhinitis (ICD-10 - J30.89) 06/05/2024 Other allergic rhinitis (ICD-10 - J30.89) Follow allergen avoidance, meds and continue SCIT as an adjunctive treatment to current regimen 07/06/2024 Other allergic rhinitis (ICD-10 - J30.89) 07/12/2024 Other allergic rhinitis (ICD-10 - J30.89) 07/19/2024 Other allergic rhinitis (ICD-10 - J30.89) 08/15/2024 Other allergic rhinitis (ICD-10 - J30.89) 09/12/2024 Other allergic rhinitis (ICD-10 - J30.89) 10/05/2024 Other allergic rhinitis (ICD-10 - J30.89) 11/02/2024 Other allergic rhinitis (ICD-10 - J30.89) 11/30/2024 Other allergic rhinitis (ICD-10 - J30.89) 12/28/2024 Other allergic rhinitis (ICD-10 - J30.89) Follow allergen avoidance, meds and continue SCIT as an adjunctive treatment to current regimen 01/24/2025 Other allergic rhinitis (ICD-10 - J30.89) 02/23/2024 Other allergic rhinitis (ICD-10 - J30.89) 01/24/2025 Other chronic allergic conjunctivitis (ICD-10 - H10.45) 12/28/2024 Other chronic allergic conjunctivitis (ICD-10 - H10.45) Given ocular signs and symptoms I encouraged allergy avoidance measures and meds as above. If symptoms persist, consider adding additional medications including intraocular antihistamine/mas t cell stabilizer, PRN and continue SCIT as an adjunctive measure 07/06/2024 Other chronic allergic conjunctivitis (ICD-10 - H10.45) 11/30/2024 Other chronic allergic conjunctivitis (ICD-10 - H10.45) 11/02/2024 Other chronic allergic conjunctivitis (ICD-10 - H10.45) 10/05/2024 Other chronic allergic conjunctivitis (ICD-10 - H10.45) 09/12/2024 Other chronic allergic conjunctivitis (ICD-10 - H10.45) 08/15/2024 Other chronic allergic conjunctivitis (ICD-10 - H10.45) 07/19/2024 Other chronic allergic conjunctivitis (ICD-10 - H10.45) 07/12/2024 Other chronic allergic conjunctivitis (ICD-10 - H10.45) 03/01/2024 Other chronic allergic conjunctivitis (ICD-10 - H10.45) 06/05/2024 Other chronic allergic conjunctivitis (ICD-10 - H10.45) Given ocular signs and symptoms I encouraged allergy avoidance measures and meds as above. If symptoms persist, consider adding additional medications including intraocular antihistamine/mas t cell stabilizer, PRN and continue SCIT as an adjunctive measure 05/17/2024 Other chronic allergic conjunctivitis (ICD-10 - H10.45) 05/03/2024 Other chronic allergic conjunctivitis (ICD-10 - H10.45) 04/19/2024 Other chronic allergic conjunctivitis (ICD-10 - H10.45) 04/06/2024 Other chronic allergic conjunctivitis (ICD-10 - H10.45) 03/22/2024 Other chronic allergic conjunctivitis (ICD-10 - H10.45) 03/15/2024 Other chronic allergic conjunctivitis (ICD-10 - H10.45) 03/08/2024 Other chronic allergic conjunctivitis (ICD-10 - H10.45) 02/23/2024 Other chronic allergic conjunctivitis (ICD-10 - H10.45) 02/09/2024 Other chronic allergic conjunctivitis (ICD-10 - H10.45) 02/16/2024 Other chronic allergic conjunctivitis (ICD-10 - H10.45) 02/16/2024 Other 02/07/2024 Other 12/28/2024 Other 02/09/2024 Other 06/05/2024 Other 02/23/2024 Other Plan Of Treatment Pending Test Test Name Order Date -Tryptase ([id number]) 11/02/2023 RESPIRATORY ALLERGY PROFILE REGION VIII: [place], [place] 10/25/2023 TRYPTASE 10/25/2023 -Respiratory Allergens w/Total IgE Area 8 11/02/2023 Next Appt Details Provider Name:Ever De Luna Daniel , 02/21/2025 09:00:00 AM, [address] [facility], [address], [address], Insurance Providers Payer Name Payer Address Payer Phone Subscriber Number Group Number Insured Name Patient Relationship to Insured Coverage Start Date Coverage End Date [employer] (Medicare) Attention Claims [address] [place] [address] [phone] [id number] Miguel Garcia Self - patient is the insured 8 [facility] [address] [place] [address] [id number] [place] Self - patient is the insured Medical (General) History Medical History History ICD Code Cancer Pruritus, unspecified L29.9 Hypertrophy of nasal turbinates J34.3 Chronic rhinitis J31.0 Allergic rhinitis due to pollen J30.1 Other chronic allergic conjunctivitis H1 0.45 Moderate persistent asthma, uncomplicate d J45.40 Surgical History Surgery Date(Month/Year) 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
--- OUTSIDE RECORDS SUMMARY | 2025-02-01 01:45 | XMS_ITS | Clinical Summary ---
Author Organization [facility] Address [address] [place] [address] Care Team Providers Care Print Binding Worker Name Role Phone Faustino Jarrett MD Primary Care Provider Allergies Active Allergy Reactions Criticality Noted Date Comments House Dust Mite Other (See comments) Low 02/15/2024 unknown Medications carvedilol (COREG) 12.5 mg tablet TK 1 T PO BID WF 5 9 Active traZODone (DESYREL) 50 mg tablet Take 1 tablet (50 mg total) by mouth nightly as needed for sleep 30 tablet 2 9 Active Additional Information Patient taking differently: 75 mgoral Nightly PRN, sleep, Reported on 08/22/2024 ferrous sulfate 325 mg (65 mg of elemental iron) tablet TK 1 T PO D WITH KRISSY 11 9 Active docusate sodium (COLACE) 100 mg capsule DOK 100 mg capsule TK ONE C PO BID Active cetirizine (ZyrTEC) 10 mg tablet cetirizine 10 mg tablet TK 1 T PO QD Active aspirin 81 mg enteric coated tablet aspirin 81 mg tablet,delayed release Active oxybutynin XL (DITROPAN XL) 15 mg 24 hr tablet Take 1 tablet (15 mg total) by mouth nightly 3 Active levothyroxine (SYNTHROID) 88 mcg tablet Take 1 tablet (88 mcg total) by mouth daily 3 Active ALPRAZolam (XANAX) 0.25 mg tablet Take 1 tablet (0.25 mg total) by mouth 3 (three) times a day as needed 4 Active montelukast (SINGULAIR) 10 mg tablet Take 1 tablet (10 mg total) by mouth nightly Active tamsulosin (FLOMAX) 0.4 mg extended release capsule 1 capsule (0.4 mg total) Active lisinopriL (PRINIVIL,ZESTR IL) 30 mg tablet Take 1 tablet (30 mg total) by mouth daily Active clopidogreL (PLAVIX) 75 mg tablet Take 1 tablet (75 mg total) by mouth daily Active gabapentin (NEURONTIN) 300 mg capsule Take 1 capsule (300 mg total) by mouth nightly Active atorvastatin (LIPITOR) 40 mg tabletIndicatio ns:Coronary artery disease of [place] artery of [place] heart with stable angina pectoris TAKE 1 TABLET(40 MG) BY MOUTH DAILY 90 tablet 1 5 Active Active Problems Problem Noted Date Diagnosed Date PAD (peripheral artery disease) 08/22/2024 Coronary artery disease of n ative heart with stable angina pectoris 08/18/2018 Overview (08/19/2018): Added automatically from request for surgery [id number] Abnormal stress test 08/16/2018 Diet-controlled diabetes mellitus 08/16/2018 Essential hypertension 08/16/2018 Hyperlipidemia LDL goal <70 08/16/2018 Dyspnea on exertion 08/16/2018 Chest pain 08/16/2018 Dyslipidemia Hypothyroidism Surgical History Surgery Date Site/Laterality Comments KNEE SURGERY HIP SURGERY BACK SURGERY CORONARY ARTERY BYPASS GRAFT VASECTOMY CATARACT EXTRACTION Medical History Medical History Date Comments GERD (gastroesophageal reflux disease) Hyperlipidemia Hypertension Thyroid disease Cancer (HCC) Arthritis Family History Medical History Relation Name Comments Cancer Mother Kandice Family history of malignant neoplasm - (Added by TW Conv) Relation Name Status Comments Mother Kandice Social History Tobacco Use Types Packs/Day Years Used Date Smoking Tobacco: Former Cigarettes 1.5 10 0 09/28/1959 - 09/27/1969 Smokeless Tobacco: Never Alcohol Use Standard Drinks/Week Comments Not Currently 0 (1 standard drink = 0.6 oz pur e alcohol) Quie 30 yrs ago Sex and Gender Information Value Date Recorded Sex Assigned at Not on file Legal Sex Male 10:04 AM 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 Gender Identity Male 04/03/2020 9:27 AM 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 Sexual Orientation Straight 04/03/2020 9: 27 AM 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 Obstetrics History Last Filed Vital Signs Vital Sign Reading Time Taken Comments Blood Pressure 130/70 08/22/2024 12:33 PM CDT Pulse 69 08/22/2024 11:52 AM CDT Temperature 36.7 C (98 F) 12/27/2018 1:16 PM CDT Respiratory Rate 16 12/27/2018 1:16 PM CDT Oxygen Saturation 95% 08/22/2024 11:52 AM CDT Inhaled Oxygen Concentration - - Weight 102.1 kg (225 lb) 08/22/2024 11:52 AM CDT Height 188 cm (6' 2) 08/22/2024 11:52 AM CDT Body Mass Index 28.89 08/22/2024 11:52 AM CDT Plan of Treatment Health Maintenance Due Date Last Done Comments Albumin Creatinine Ratio, Urine 1945 Depression Screening 1945 Fall Risk Assessment 1945 Hepatitis C Screening 1945 Dilated Eye Exam 1945 Foot Exam 1945 DTaP/Tdap/Td Vaccine (1 - Tdap) 1958 Hepatitis B Screening 1965 Zoster Vaccine (1 of 2) 1997 Abdominal Aortic Aneurysm (A AA) Screen 2012 Well Visit 65+ 2012 eGFR 08/28/2019 08/27/2018, 08/04, 08/25/2018, Additional history exists Hemoglobin A1C 06/18/2024 12/20/2023, 08/19/2018 Influenza Vaccine (#1) 2024 9, 01/04/2016, 12/31/2014, Additional history exists Lipid Panel 12/19/2024 12/20/2023, 09/04, 08/16/2022, Additional history exists Pneumococcal vaccine 65+ Completed 03/03/2016, 12/05 Procedures Procedure Name Priority Date/Time Associated Diagnosis Comments LIPID PANEL Routine 09/28/2023 7:59 AM CDT EGFR Routine 08/27/2018 5:21 AM CDT HEMOGLOBIN A1C Add-On 08/19/2018 2:25 AM CDT from Last 3 Months or Most Recently Relevant to Health Maintenance Results * Lipid panel (09/28/2023 7:59 AM CDT) SCRIBED Cholesterol, Total 114 0 - 200 EXTERNAL LAB SCRIBED HDL 45 40 - 100 EXTERNAL LAB SCRIBED LDL 54 0 - 100 EXTERNAL LAB SCRIBED Triglycerides 69 0 - 150 EXTERNAL LAB Blood 09/28/2023 7:59 AM CDT us Historical Provider MD LAB BLOOD ORDERABLES Daniela l Result EXTERNAL LAB * eGFR (08/27/2018 5:21 AM CDT) eGFR 72 mL/min/1.7 3 m2 ASIA Comment: Interpretive Data Reference Interval Normal >/= 90 mL/min/1.73m2 Mildly decreased* 60 - 89 mL/min/1.73m2 Mildly to moderately decreased 45 - 59 mL/min/1.73m2 Moderately to severely decreased 30 - 44 mL/min/1.73m2 Severely decreased 15 - 29 mL/min/1.73m2 Kidney Failure < 15 mL/min/1.73m2 *Relative to young adult level If -Israeli multiply value by 1.16. Estimated glomerular filtration rate is determined by the CKD-EPI equation recommended by the National Kidney Foundation (KDIGO 2012 Clinical Practice Guideline for the Evaluation and Management of Chronic Kidney Disease. Kidney Intnl Suppl Apr 2012;3:1). The CKD-EPI equation should not be used for patients with unstable renal function and has not been validated in children and those over 70. Current interpretive data was last reviewed 2015. Blood specimen (specimen) 08/27/2018 5:21 AM CDT 08/27/2018 5:37 AM CDT Narrative ASIA - 08/27/2018 6:02 AM CDT Zunilda Gómez NP LAB BLOOD ORDERABLES Final Result [facility] [address] [place] [address] * (ABNORMAL) Hemoglobin A1c (08/19/2018 2:25 AM CDT) Hgb A1C 5.8(H) 4.0 - 5.6 % ASIA MONDRAGON Estimated Average Glucose 120 mg/dL ASIA MONDRAGON Comment: The ADA recommends reporting an estimated Average Glucose (eAG) with all Hemoglobin A1c results using the equation derived from a study of 507 normal and diabetic adults. Minority populations were underrepresented and children were not included. (Diabetes Care 31:1697-8964, 2008). The eAG is not equivalent to a fasting glucose. Blood specimen (specimen) 08/19/2018 2:25 AM CDT 08/19/2018 4:09 PM CDT Narrative ASIA ALANNA - 08/19/2018 4:41 PM CDT Zunilda Gómez NP LAB BLOOD ORDERABLES Final Result [facility]DRAG[facility] [address] [place] [address] from Last 3 Months or Most Recently Relevant to Health Maintenance Insurance MEDICARE MEDICARE [facility] MEDICARE [facility] MEDICARE [facility] FEDERAL Advance Directives For more information, please contact: [phone] * Full Code (Latest Code Status on File) Date Activated Date Inactivated Comments 08/22/2018 7:11 PM 08/27/2018 3:22 PM * Full Code Date Activated Date Inactivated Comments 08/18/2018 6:34 PM 08/22/2018 7:11 PM Care Teams Print Binding Worker Relationship Specialty Start Date End Date Faustino Jarrett MD [address] [facility] [address] [place], [place] [id number] PCP - General 07/27/16
--- OUTSIDE RECORDS SUMMARY | 2025-02-01 01:45 | XMS_ITS | Encounter Summary ---
Author Organization [facility] Healthcare Address [address] [place] [address] Care Team Providers Care Registered Nurse Surgical Services Name Role Phone Faustino Jarrett MD Primary Care Provider Encounter Details Date Type Department Care Team (Late st Contact Info) Description 04/03/2024 Orders Only [facility] [facility] Information Management [address] [place] [id number] Scanning, Provider Social History Tobacco Use Types Packs/Day Years Used Date Smoking Tobacco: Former Cigarettes 1.5 10 0 09/28/1959 - 09/27/1969 Smokeless Tobacco: Never Alcohol Use Standard Drinks/Week Comments Not Currently 0 (1 standard drink = 0.6 oz pur e alcohol) Quie 30 yrs ago Sex and Gender Information Value Date Recorded Sex Assigned at Not on file Legal Sex Male 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 Gender Identity Male 04/03/2020 9:27 AM SALES REPRESENTATIVE GROCERIES Sexual Orientation Straight 04/03/2020 9: 27 AM SALES REPRESENTATIVE GROCERIES documented as of this encounter Plan of Treatment Not on file documented as of this encounter Procedures Procedure Name Priority Date/Time Associated Diagnosis Comments SCAN - RADIOLOGY/IMAGING 04/03/2024 documented in this encounter Results * SCAN - RADIOLOGY/IMAGING (04/03/2024) Anatomical Region Laterality Modality Other us Provider Scanning Final Result documented in this encounter Visit Diagnoses Not on filedocumented in this encounter Care Teams Registered Nurse Surgical Services Relationship Specialty Start Date End Date Faustino Jarrett MD [address] [place] [address] [place] [address] PCP - General 07/27/16 documented as of this encounter
[2025-02-01 09:01] VITALS: BP 166/80; PULSE 52; RESP 18; TEMP 36.4; O2SAT 95; BMI 28.7
[2025-02-01] MEDS: LACTATED RINGERS 1,000 ML 150 ML IV CONT (09:08)
--- NOTE | 2025-02-01 10:18 | PM.IMHP ---
H&P: HPI History of Present Illness Date/Time: 02/01/25 10:18 Chief Complaint: History of colon polyps Narrative: The patient has a history of colonic polyps, the last colonoscopy was Review of Systems Review of Systems: All systems reviewed & are unremarkable except as noted in HPI and below PMFSH Past Medical History Medical History Carotid artery stenosis Benign essential tremor Insomnia BPH (benign prostatic hyperplasia) Obesity Lumbar spondylosis CAD (coronary artery disease) History of prostate cancer Hypothyroidism HLD (hyperlipidemia) HTN (hypertension) Type 2 diabetes mellitus without complications Not currently on medications, A1C 5.6 on 09/16/22 Surgical History Surgical History History of hip surgery right hip replacement History of knee surgery left knee replacement History of coronary artery bypass graft Family History Family History Mother Family history of primary malignant neoplasm of liver Social History Social History Social History: Lives at home with . Elects his , aMrly Garcia, as his surrogate decision maker. Code Status: Full Code. Years smoked: 10 Smoking status: Former smoker Tobacco type: cigarettes Second hand tobacco smoke exposure: No Smoking end date: 04/05/79 Alcohol intake: never Substance use: current Substance use type: marijuana Other substance usage details: WEEKLY FOR BACK PAIN Do You Feel Safe in your Home?: Yes Lack of Transportation: No Lack of Food: Never True Current Housing: I Have Housing Concerned About Future Housing: No Difficulty Paying Gas/Electric Bills: No Difficulty Paying for Meds: No Currently Unemployed: No Education: Master's Degree or Higher Difficulty w/ Childcare or Family Care: No Living arrangements: with family Occupation/Education: retired Gender identity (if verbalized by the patient): Male Sexual Orientation (if Verbalized by the Patient): Straight or Heterosexual Spiritual care concerns: No Meds Home Medications and Allergies Home Medications ?Medication ?Instructions ?Recorded ?Confirmed ?Type aspirin 81 mg tablet,delayed 81 mg PO HS 08/16/19 02/01/25 History release (Adult Low Dose Aspirin) atorvastatin 40 mg tablet 40 mg PO HS 08/16/19 02/01/25 History cetirizine 10 mg tablet (Allergy 10 mg PO PRN PRN Allergy Symptoms 08/16/19 01/18/25 History Relief (cetirizine)) ferrous sulfate 325 mg (65 mg 325 mg PO HS 08/16/19 01/18/25 History iron) tablet docusate sodium 100 mg capsule 100 mg PO BID PRN constipation 02/02/22 01/18/25 History (Stool Softener) glucosamine sulfate 500 1 tablet PO HS 02/02/22 02/01/25 History mg-chondroitin 200 mg-msm 150 mg tablet multivitamin 1 tablet PO HS 02/02/22 02/01/25 History tamsulosin 0.4 mg capsule 0.4 mg PO HS 02/02/22 02/01/25 History oxybutynin chloride 15 mg 15 mg PO HS 03/13/23 02/01/25 History tablet,extended release 24 hr trazodone 150 mg tablet 150 mg PO QHS #90 tabs 03/08/24 02/01/25 Rx alprazolam 0.25 mg tablet (Xanax) 0.25 mg PO TID PRN Tremor #60 tabs 08/03/24 01/18/25 Rx gabapentin 300 mg capsule 300 mg PO TID PRN pain #90 caps 08/23/24 01/18/25 Rx carvedilol 12.5 mg tablet See Rx Instructions .Route 09/04/24 02/01/25 Rx .COMPLEX #180 tabs clopidogrel 75 mg tablet (Plavix) 75 mg PO DAILY #90 tabs 09/04/24 02/01/25 Rx lisinopril 30 mg tablet 30 mg PO DAILY #90 tabs 11/16/24 02/01/25 Rx levothyroxine 88 mcg tablet 88 mcg PO DAILY #90 tabs 12/06/24 02/01/25 Rx heme iron 20 mg PO BID 01/18/25 02/01/25 History suzetrigine 50 mg tablet (Journavx) 50 mg PO BID PRN severe pain 01/18/25 01/18/25 History (scale score 7-10) Allergies Allergy/AdvReac Type Severity Reaction Status Date / Time No Known Allergies Allergy Verified 02/01/25 08:59 Vital Signs Vital Signs - 24 hr 02/01/25 09:01 Temperature 97.6 F Pulse Rate 52 L Respiratory Rate 18 Blood Pressure 166/80 H Pulse Oximetry 95 Oxygen Delivery Room Air Exam Const: General: cooperative and healthy appearing Resp: Effort & Inspection: normal respiratory effort and able to speak in complete sentences Auscultation: clear to auscultation bilaterally Cardio: Rate: regular rate Rhythm: regular rhythm GI: Inspection: normal to inspection GI Palp: No No hepatosplenomegaly present Auscultation: normal bowel sounds Rectal Exam: deferred Skin: General skin exam: normal color Psych: Appearance: grossly normal Mental Status: mental status grossly normal Assessment and Plan Assessment and plan (1) History of colonic polyps: Code(s): Z86.0100 - Personal history of colon polyps, unspecified Status: Acute Assessment and Plan: The patient is deemed a good candidate for the procedure. Consent signed. Will proceed.
--- NOTE | 2025-02-01 10:23 | WPDANESEPPF ---
Anes - Initial Pre Proc Eval Procedure: Operation Date: 02/01/25 10:00 Proposed Procedures p Screening Colonoscopy - Gray Fletcher MD Date/Time: 02/01/25 10:23 Surgeon: Gray Fletcher MD Pre Op Diagnosis: Personal history of colon polyps, unspecified Patient Data Age: 79 Gender: M Height: 1.88 m Weight: 101.4 kg Last Vital Signs Temp 97.6 F 02/01/25 09:01 Pulse 52 L 02/01/25 09:01 Resp 18 02/01/25 09:01 BP 166/80 H 02/01/25 09:01 Pulse Ox 95 02/01/25 09:01 O2 Del Method Room Air 02/01/25 09:01 Allergies Allergy/AdvReac Type Severity Reaction Status Date / Time No Known Allergies Allergy Verified 02/01/25 08:59 Home Medications ?Medication ?Instructions ?Recorded ?Confirmed ?Type aspirin 81 mg tablet,delayed 81 mg PO HS 08/16/19 02/01/25 History release (Adult Low Dose Aspirin) atorvastatin 40 mg tablet 40 mg PO HS 08/16/19 02/01/25 History cetirizine 10 mg tablet (Allergy 10 mg PO PRN PRN Allergy Symptoms 08/16/19 01/18/25 History Relief (cetirizine)) ferrous sulfate 325 mg (65 mg 325 mg PO HS 08/16/19 01/18/25 History iron) tablet docusate sodium 100 mg capsule 100 mg PO BID PRN constipation 02/02/22 01/18/25 History (Stool Softener) glucosamine sulfate 500 1 tablet PO HS 02/02/22 02/01/25 History mg-chondroitin 200 mg-msm 150 mg tablet multivitamin 1 tablet PO HS 02/02/22 02/01/25 History tamsulosin 0.4 mg capsule 0.4 mg PO HS 02/02/22 02/01/25 History oxybutynin chloride 15 mg 15 mg PO HS 03/13/23 02/01/25 History tablet,extended release 24 hr trazodone 150 mg tablet 150 mg PO QHS #90 tabs 03/08/24 02/01/25 Rx alprazolam 0.25 mg tablet (Xanax) 0.25 mg PO TID PRN Tremor #60 tabs 08/03/24 01/18/25 Rx gabapentin 300 mg capsule 300 mg PO TID PRN pain #90 caps 08/23/24 01/18/25 Rx carvedilol 12.5 mg tablet See Rx Instructions .Route 09/04/24 02/01/25 Rx .COMPLEX #180 tabs clopidogrel 75 mg tablet (Plavix) 75 mg PO DAILY #90 tabs 09/04/24 02/01/25 Rx lisinopril 30 mg tablet 30 mg PO DAILY #90 tabs 11/16/24 02/01/25 Rx levothyroxine 88 mcg tablet 88 mcg PO DAILY #90 tabs 12/06/24 02/01/25 Rx heme iron 20 mg PO BID 01/18/25 02/01/25 History suzetrigine 50 mg tablet (Journavx) 50 mg PO BID PRN severe pain 01/18/25 01/18/25 History (scale score 7-10) Patient hx anesthesia problems: none Family hx anesthesia problems: none Results Review: All pre-operative results and documents have been reviewed as part of the pre-operative evaluation. [facility] Past Medical History Medical History Carotid artery stenosis Benign essential tremor Insomnia BPH (benign prostatic hyperplasia) Obesity Lumbar spondylosis CAD (coronary artery disease) History of prostate cancer Hypothyroidism HLD (hyperlipidemia) HTN (hypertension) Type 2 diabetes mellitus without complications Not currently on medications, A1C 5.6 on 09/16/22 Surgical History Surgical History History of hip surgery right hip replacement History of knee surgery left knee replacement History of coronary artery bypass graft Family History Family History Mother Family history of primary malignant neoplasm of liver Social History Social History Social History: Lives at home with . Elects his , Marly Garcia, as his surrogate decision maker. Code Status: Full Code. Years smoked: 10 Smoking status: Former smoker Tobacco type: cigarettes Second hand tobacco smoke exposure: No Smoking end date: 04/05/79 Alcohol intake: never Substance use: current Substance use type: marijuana Other substance usage details: WEEKLY FOR BACK PAIN Do You Feel Safe in your Home?: Yes Lack of Transportation: No Lack of Food: Never True Current Housing: I Have Housing Concerned About Future Housing: No Difficulty Paying Gas/Electric Bills: No Difficulty Paying for Meds: No Currently Unemployed: No Education: Master's Degree or Higher Difficulty w/ Childcare or Family Care: No Living arrangements: with family Occupation/Education: retired Gender identity (if verbalized by the patient): Male Sexual Orientation (if Verbalized by the Patient): Straight or Heterosexual Spiritual care concerns: No Anes - Eval Final PreProcedure Day of Procedure 02/01/25 10:23 Patient weight: overweight Lungs: normal air movement Airway: Mallampati scale class II Neurological: alert and oriented Last oral intake: >/= 8 hours ASA classification: IV Emergent: no Anesthetic plan: proceed Anesthesia type and monitoring: general GIVS and standard monitoring Results Review: All pre-operative results and documents have been reviewed as part of the pre-operative evaluation. Complicated hx reviewed and note from cardio reviewed. HTN, hyperlipidemia, ex smoker, prev CABG x 3 v, chr back pain, no cp or sob w walking short distances. Informed Consent: The patient's anesthetic plan and its attendant risks and benefits were discussed with the patient/family/POA. Questions were solicited and answers provided to the satisfaction of the patient/family/POA.
--- NOTE | 2025-02-01 10:54 | S_PTH ---
PATIENT: Miguel Garcia LOC: [facility] U#:[id number] AGE/SX: 79/M ROOM: RE02/01/[address]: Gray Fletcher MD : 1945 BED: DIS: 02/01/2025 SPEC #: [id number] RECD: 02/01/25 11:39 STATUS: KORINA REQ #: [id number] SHANNAN: 02/01/25 10:[address]: Gray Fletcher DEPT: [facility] Surgical RECD BY: Cheryl Maya ENTERED: 02/01/25 11:40 SP TYPE: Surgical OTHR DR: Faustino Jarrett MD Tissues: A - Colon Polypectomy B - Colon Polypectomy Procedures: Hematoxylin and Eosin Stain Gross and Microscopic Level 4
[2025-02-01 10:57] VITALS: BP 123/82; PULSE 77; RESP 20; O2SAT 97
[2025-02-01 11:07] VITALS: BP 169/69; PULSE 64; RESP 20; O2SAT 99
[2025-02-01 11:17] VITALS: BP 168/79; PULSE 60; RESP 17; O2SAT 99
== END 2025-02-01 11:28 | disposition home or self-care (01) ==
PROVIDERS: PCP Family Medicine; Referring Provider Physician Assistant; Visit Provider Internal Medicine Gastroenterology
PROC: 0DJD8ZZ Inspection of Lower Intestinal Tract, Via Natural or Artificial Opening Endoscopic (ICD-10-PCS; CPT 45378; principal; 2025-02-01 10:00)
DX: Z12.11 Encounter for screening for malignant neoplasm of colon (principal); D12.3 Benign neoplasm of transverse colon; D12.5 Benign neoplasm of sigmoid colon; K57.30 Diverticulosis of large intestine without perforation or abscess without bleeding; Q27.33 Arteriovenous malformation of digestive system vessel; E03.9 Hypothyroidism, unspecified; E78.5 Hyperlipidemia, unspecified; I10 Essential (primary) hypertension; E11.9 Type 2 diabetes mellitus without complications; N40.0 Benign prostatic hyperplasia without lower urinary tract symptoms; I25.10 Atherosclerotic heart disease of native coronary artery without angina pectoris; G25.0 Essential tremor; G47.00 Insomnia, unspecified; M43.06 Spondylolysis, lumbar region; F12.90 Cannabis use, unspecified, uncomplicated; Z79.82 Long term (current) use of aspirin; Z79.02 Long term (current) use of antithrombotics/antiplatelets; Z98.890 Other specified postprocedural states; Z95.1 Presence of aortocoronary bypass graft; Z87.891 Personal history of nicotine dependence; Z85.46 Personal history of malignant neoplasm of prostate; Z86.79 Personal history of other diseases of the circulatory system; Z80.0 Family history of malignant neoplasm of digestive organs
CPT/HCPCS: 45385; 88305; J2003; J2704; J7120